=== PATIENT | male | born 1950 | race Caucasian/White ===

== ENCOUNTER 2024-10-03 05:54 | Inpatient (IN) | payer OTHER ==
--- OUTSIDE RECORDS SUMMARY | 2024-10-03 05:57 | XMS REPORT | Continuity of Care Document ---
Author Name Unknown Address [address] [place] [address] [place] [address] [facility] Address [address] [place] [address] [address] [place] [address] Care Team Providers Care Social Media Project Manager Name Role Phone No, PCP Attending Clinician Unavailable Encounters Start Date/Time End Date/Time Encounter Type Admission Type Attending Clinicians Care Facility Care Department Encounter ID Source 2024-09-30 14:04:01 Outpatient No, PCP JAZMIN [id number] [id number] [facility] 2024-09-12 14:16:01 Outpatient No, PCP JAZMIN [id number] [facility] 2024-09-10 08:15:01 Outpatient No, PCP CLS [id number] [facility]
[2024-10-03] MEDS ORDERED: VANCOMYCIN 1 GM/VIAL ONE (06:42)
[2024-10-03] MEDS ORDERED: PANTOPRAZOLE 40 MG INJ ONE (06:43)
[2024-10-03] MEDS ORDERED: IBUPROFEN 400 MG TAB ONE (06:43)
[2024-10-03] MEDS ORDERED: ACETAMINOPHEN 500 MG TAB ONE (06:43)
[2024-10-03] MEDS ORDERED: GUAIFENESIN/DM 5 ML UCUP ONE (06:44)
[2024-10-03] MEDS ORDERED: NA CHLORIDE 0.9% 1,000 ML ONE (06:44)
[2024-10-03] MEDS ORDERED: CEFEPIME 2 GM VIAL ONE (06:44)
[2024-10-03] MEDS ORDERED: NA CHLORIDE 0.9% 500 ML ONE (06:44)
[2024-10-03] MEDS ORDERED: NA CHLORIDE 0.9% 100 ML ONE (06:45)
[2024-10-03 06:52] LABS: Absolute Lymphocytes (CBC) 0.3 K/uL (0.7-4.9); Absolute Monocytes 0.6 K/uL (0.1-1.3); Absolute Neutrophil 16.1 K/uL (1.8-8.0); Basophils % 0.2 % (0-1.3); Eosinophils % 0.2 % (0-4.4); Hematocrit 43.2 % (39.6-49.0); Hemoglobin 15.4 g/dL (13.6-17.9); Lymphocytes % 1.9 % (15.3-44.8); MCHC 35.6 g/dL (32.0-36.0); MCV 98.4 fL (80-100); MPV 7.4 fL (7.6-11.3); Monocytes % 3.7 % (3.3-12.3); Platelets 262 thou/uL (152-406); RBC Red Blood Cell Count 4.39 M/uL (4.33-5.43); Red Cell Distribution Width 13.1 % (12.1-15.2)
[2024-10-03 06:59] LABS: PT Prothrombin Time 13.2 SECONDS (10.0-13.0); Protime INR 1.17
[2024-10-03 07:07] LABS: Albumin 3.7 g/dL (3.4-5.0); Albumin/Globulin Ratio 0.9 (1.1-1.8); Anion Gap 10.9 mEq/L (5.0-15.0); Bilirubin Total 1.4 mg/dL (0.2-1.0); Globulin 4.2 g/dL (2.3-3.5); Potassium 3.9 mEq/L (3.5-5.1); Protein, Total 7.9 g/dL (6.4-8.2)
[2024-10-03 07:14] LABS: Influenza A Ag Negative; Influenza B Ag Negative; SARS-CoV-2 Antigen Rapid Res Negative (Negative)
[2024-10-03 07:34] LABS: Troponin High Sensitivity 5.9 pg/mL (<58.9)
--- NOTE | 2024-10-03 08:30 | RAD REPORT ---
EXAMINATION: ONE VIEW CHEST XR CLINICAL INDICATION: Male, 73 years old.,Chest pain;COPD;Cough TECHNIQUE: Frontal chest projection is submitted. Examination is limited by patient positioning and t echnique. COMPARISON: None FINDINGS: Background chronic interstitial changes. Streaky left more than right basilar airspace opacities. No pneumothorax or sizable effusion. The heart is normal in size. Mediastinal contours are unremarkable. IMPRESSION: Streaky bibasilar airspace opacities, could reflect ongoing infection or mild interstitial edema.
--- NOTE | 2024-10-03 08:42 | RAD REPORT ---
EXAM: CT CHEST, ABDOMEN AND PELVIS WITHOUT CONTRAST CLINICAL INDICATION: Male, 73 years old. [facility] MAIN cough , vomiting Bed Name: 2 TECHNIQUE: CT chest, abdomen and pelvis was performed, without IV contrast, as per department protoco l. Axial, sagittal and coronal reconstructions were obtained. One or more of the following dose reduction techniques were used: Automated exposure control, adjustment of the mA and/or kV according to the patient size, and/or iterative reconstruction. Unless otherwise specified, incidental findings do not require dedicated imaging follow-up. COMPARISON: No prior exam. FINDINGS: The lack of intravenous contrast limits the sensitivity of this exam for evaluation of solid visceral organs, vascular structures, and retroperitoneum. Chest: LOWER NECK/CHEST WALL: Visualized thyroid gland and soft tissues are normal. LUNGS AND AIRWAYS: Patchy central and dependent predominant airspace opacities with interlobular sept al thickening. Subsolid peripheral right lower lobe nodule measuring 8mm. Background mild centrilobular emphysematous changes. PLEURA: No pleural effusion. No pneumothorax. Hemidiaphragms are normally positioned. MEDIASTINUM AND LYMPH NODES: No mediastinal mass or fluid collection. Normal size mediastinal, hilar, and axillary lymph nodes. THORACIC AORTA: Normal caliber and configuration. PULMONARY ARTERIES: Normal caliber. HEART: Unremarkable. Abdomen/Pelvis: Motion artifact at the level of the mid abdomen despite attempts at repeat imaging. LIVER: Normal in size and contour. No focal lesion. GALLBLADDER/BILE DUCTS: No biliary ductal dilatation. PANCREAS: No mass, ductal dilation, or elie-pancreatic fluid. SPLEEN: Normal size. No focal lesion. ADRENALS: Normal; no mass. KIDNEYS AND URETERS: Normal size and contour. No hydronephrosis. GASTROINTESTINAL TRACT: Stomach is non-dilated. Small bowel has normal course and caliber. No colonic wall thickening or pericolonic inflammatory changes. PERITONEUM: No free fluid. LYMPH NODES: No lymphadenopathy. ABDOMINAL AORTA AND OTHER VESSELS: Normal caliber aorta and IVC. URINARY BLADDER: Normal contour. REPRODUCTIVE ORGANS: No pathologic process. MUSCULOSKELETAL: Mild compression deformities along the superior endplate at the L1 and inferior endp late at L2. ADDITIONAL FINDINGS: None IMPRESSION: Patchy central and dependent bilateral airspace opacities with interlobular septal thickening. Findin gs could reflect multifocal pneumonitis versus pulmonary edema. Subcentimeter peripheral right lower lobe 8 mm nodule, follow-up CT recommended in 1-3 months or following resolution of any acute p rocess. Mild compression deformities at L1 and L2, of indeterminate age, correlate for focal symptoms at thos e levels.
--- NOTE | 2024-10-03 08:51 | EDPHYS ---
Physician Documentation [facility] Name: Julio Reyna Age: 73 yrs Sex: Male : 1950 Arrival Date: 10/03/2024 Time: 05:54 Bed 5 Private MD: ED Physician Willy Medina HPI: 10/03 08:15 This 73 yrs old Male presents to ER via Ambulatory with complaints of sp4 Shortness Of Breath, Nausea/Vomiting, Chest Pain, PT STATED HE IS VOMITING UP BLOOD. 08:15 Patient with past medical history of COPD presents with acute onset of fever nausea sp4 vomiting states also there is vomitus that is bloody. Historical: - Allergies: 06:17 No Known Allergies; vc1 - Home Meds: 12:17 losartan 25 mg oral tablet 1 tab daily [Active]; desvenlafaxine 100 mg oral Tablet, bp Extended Release 24 hr 1 tab daily [Active]; BuSpar Oral 10 mg daily [Active]; trazodone 100 mg Oral tablet 1 tab every day at bedtime [Active]; quetiapine 200 mg oral tablet 1 tab every day at bedtime [Active]; - PMHx: 06:17 Chronic obstructive lung disease; vc1 - PSHx: 06:17 hip replacements; vc1 - Immunization history:: Adult Immunizations unknown. - Infectious Disease History:: Denies. - Family history:: not pertinent. - Social history:: Smoking status: Patient denies any tobacco usage or history of. ROS: 08:15 Constitutional: Positive fever, positive shortness of breath, positive cough, positive sp4 bloody emesis 08:15 All other systems are negative, Exam: 08:15 Constitutional: This is a well developed, well nourished patient who is awake, alert, sp4 and in no acute distress. Head/Face: Normocephalic, atraumatic. Eyes: Pupils equal round and reactive to light, extra-ocular motions intact. Lids and lashes normal. Conjunctiva and sclera are not injected. Cornea within normal limits. Periorbital areas with no swelling, redness, or edema. ENT: Nares patent. No nasal discharge, no septal abnormalities noted. Tympanic membranes are normal and external auditory canals are clear. Oropharynx with no redness, swelling, or masses, exudates, or evidence of obstruction, uvula midline. Mucous membranes moist. Neck: Trachea midline, no thyromegaly or masses palpated, and no cervical lymphadenopathy. Supple, full range of motion without nuchal rigidity, or vertebral point tenderness. Chest/axilla: Normal chest wall appearance and motion. Nontender with no deformity. No lesions are appreciated. Cardiovascular: Regular rate and rhythm with a normal S1 and S2. No gallops, murmurs, or rubs. Normal PMI, no JVD. No pulse deficits. Respiratory: Lungs have equal breath sounds bilaterally, clear to auscultation and percussion. No rales, rhonchi or wheezes noted. No increased work of breathing, no retractions or nasal flaring. Abdomen/GI: Soft, with normal bowel sounds. No distension or tympany. No guarding or rebound. No evidence of tenderness throughout. Back: No spinal tenderness. No costovertebral tenderness. Skin: Warm, dry with normal turgor. Normal color with no rashes, no lesions, and no evidence of cellulitis. MS/ Extremity: Pulses equal, no cyanosis. Neurovascular intact. Full, normal range of motion. Neuro: Awake and alert, GCS 15, oriented to person, place, time, and situation. Cranial nerves II-XII grossly intact. Motor strength 5/5 in all extremities. Sensory grossly intact. Psych: Awake, alert, with orientation to person, place and time. Behavior, mood, and affect are within normal limits 08:15 ECG was reviewed by the Attending Physician. EKG at 0 611 sinus tachycardia right bundle branch block otherwise normal Vital Signs: 06:14 BP 134 / 79; Pulse 124; Resp 30; Temp 99.6; Pulse Ox 88% on R/A; Weight 89.81 kg; vc1 Height 5 ft. 10 in. ; Pain 8/10; 06:22 BP 125 / 76; Pulse 118; Resp 28; Temp 99.6; Pulse Ox 93% on 6 lpm NC; Pain 10/10; bm8 07:45 BP 101 / 62; Pulse 114; Resp 29; Pulse Ox 92% ; bp 08:27 BP 104 / 53; Pulse 112; Resp 24; Pulse Ox 93% on 6 lpm NC; ph 06:14 Body Mass Index 28.41 (89.81 kg, 177.8 cm) vc1 06:14 Pain Scale: Adult vc1 06:22 Pain Scale: Adult bm8 Ibrahima Coma Score: 06:22 Eye Response: spontaneous(4). Motor Response: obeys commands(6). Verbal Response: bm8 oriented(5). Total: 15. 08:15 Eye Response: spontaneous(4). Motor Response: obeys commands(6). Verbal Response: sp4 oriented(5). Total: 15. MDM: 06:36 Medical Screening Exam initiated sp4 08:18 Differential diagnosis: Anxiety Reaction asthma, Bronchitis CHF exacerbation, Chronic sp4 Obstructive Pulmonary Disease Myocardial Infarction pneumonia, Sepsis Unstable Angina. Data reviewed: vital signs, nurses notes, old medical records, lab test result(s), radiologic studies, CT scan. Transition of care: After a detail discussion of the patient's case, care is transferred to Willy Medina MD. 08:50 ED course: Patient signed out to me by night physician for CT chest abdomen and pelvis sp3 pending with probable pneumonia sepsis scenario. Pneumonia confirmed on CT. Antibiotics on board. Patient will be admitted to internal medicine.. 10/03 06:21 Order name: Blood Culture Adult (2) 10/03 06:21 Order name: CBC with Diff; Complete Time: 08:15 10/03 06:21 Order name: CMP; Complete Time: 08:15 10/03 06:21 Order name: Lactate w/ 2H reflex if indic.; Complete Time: 08:15 10/03 06:21 Order name: Protime (+inr); Complete Time: 08:15 10/03 06:21 Order name: Ptt, Activated; Complete Time: 08:15 10/03 06:23 Order name: COVID-19 Ag + Flu A+B Ag; Complete Time: 08:15 10/03 06:26 Order name: Group A Streptococcus Rapid; Complete Time: 08:15 10/03 06:34 Order name: Troponin High Sensitivity; Complete Time: 08:15 10/03 06:34 Order name: BNP; Complete Time: 08:15 sp10/03 06:35 Order name: CRP; Complete Time: 08:15 sp10/03 06:36 Order name: Lipase; Complete Time: 08:15 10/03 06:36 Order name: Urinalysis W/Microscopic 4 10/03 07:14 Order name: Throat Culture EDAZ 10/03 09:42 Order name: Urinalysis w/ reflexes EDMS 10/03 09:42 Order name: Basic Metabolic Panel EDAZ 10/03 09:42 Order name: Basic Metabolic Panel EDAZ 10/03 09:42 Order name: Basic Metabolic Panel EDAZ 10/03 09:42 Order name: Basic Metabolic Panel [facility] 10/03 09:42 Order name: Comprehensive Metabolic Panel [facility] 10/03 09:42 Order name: Comprehensive Metabolic Panel [facility] 10/03 09:42 Order name: Comprehensive Metabolic Panel EDAZ 10/03 09:42 Order name: Comprehensive Metabolic Panel [facility] 10/03 09:42 Order name: Liver (Hepatic) Function EDAZ 10/03 09:42 Order name: Liver (Hepatic) Function EDAZ 10/03 09:42 Order name: Protime (+INR) EDAZ 10/03 09:42 Order name: Protime (+INR) EDAZ 10/03 09:42 Order name: Sputum Culture [facility] 10/03 06:27 Order name: CXR XRAY; Complete Time: 08:44 vc1 10/03 06:33 Order name: CT Chest Abdomen Pelvis W/O Contrast; Complete Time: 08:44 sp4 10/03 09:52 Order name: Abdomen Exam Limited; Complete Time: 13:08 EDAZ 10/03 09:42 Order name: EKG Electrocardiogram EDAZ 10/03 09:42 Order name: EKG Electrocardiogram [facility] 10/03 06:21 Order name: Cardiac monitoring; Complete Time: 06:32 vc1 10/03 06:21 Order name: EKG - Nurse/Tech; Complete Time: 06:32 vc1 10/03 06:21 Order name: IV Saline Lock - Large Bore; Complete Time: 06:32 vc1 10/03 06:21 Order name: Labs collected and sent; Complete Time: 06:32 vc1 10/03 06:21 Order name: O2 Per Protocol; Complete Time: 06:32 vc1 10/03 06:21 Order name: O2 Sat Monitoring; Complete Time: 06:32 vc1 10/03 06:21 Order name: Vital Signs; Complete Time: 06:32 vc1 EC:11 Rate is 125 beats/min. Rhythm is regular, Sinus tachycardia. QRS Vestal is Normal. OK sp4 interval is normal. QRS interval is prolonged. QT interval is normal. No Q waves. T waves are Normal. No ST changes noted. Clinical impression: No evidence of ischemia. Interpreted by me. Reviewed by me. Administered Medications: 07:04 Drug: Pantoprazole IVP 80 mg IVP once Route: IVP; Site: right forearm; bm8 08:25 Follow up: Response: No adverse reaction ph 07:04 Drug: Cefepime IVPB 2 grams IVPB at 200 ml/hr once over 30 mins; (mix in NS 100 mL) bm8 Route: IVPB; Rate: 200 ml/hr; Infused Over: 30 mins; Site: right forearm; 07:35 Follow up: IV Status: Completed infusion ph 07:04 Drug: NS 0.9% IV 1000 ml IV at 1 bolus Per protocol; to be given as a bolus over 60 bm8 minutes Route: IV; Rate: 1 bolus; Site: right forearm; 08:10 Follow up: Response: No adverse reaction; IV Status: Completed infusion ph 07:04 Drug: Acetaminophen PO 1000 mg PO once Route: PO; bm8 08:26 Follow up: Response: No adverse reaction ph 07:04 Drug: Dextromethorphan-Guaifenesin PO Liquid 10 mg-100 mg/5 mL 10 ml PO once Route: PO; bm8 08:26 Follow up: Response: No adverse reaction ph 07:05 Drug: Ibuprofen PO 800 mg PO once Route: PO; bm8 08:25 Follow up: Response: No adverse reaction ph 07:43 Drug: vancoMYCIN IVPB 2 grams IVPB at calculated rate once Route: IVPB; Rate: bp calculated rate; Site: right forearm; 07:44 Drug: NS 0.9% IV 1000 ml IV at 125 ml/hr Per protocol; to be given as a bolus over 60 bp minutes Route: IV; Rate: 125 ml/hr; Site: right forearm; 08:26 Follow up: Response: No adverse reaction; IV Status: Infusion continued upon admission ph 07:45 Drug: NS 0.9% IV 1000 ml IV at 1 bolus Per protocol; to be given as a bolus over 60 bp minutes Route: IV; Rate: 1 bolus; Site: right forearm; 08:26 Follow up: Response: No adverse reaction; IV Status: Completed infusion; IV Intake: ph 1000ml Disposition Summary: 10/03/24 08:51 Hospitalization Ordered Notes: Hospitalization Status: Inpatient Admission sp3 Provider: Omer Sanchez sp3 Condition: Stable sp3 Problem: an acute exacerbation sp3 Symptoms: have worsened sp3 Bed/Room Type: Standard sp3 Location: Telemetry/MedSurg (observation)(10/03/24 17:24) hb Room Assignment: 218(10/03/24 17:24) hb Diagnosis - pneumonia, sepsis sp3 Forms: - Medication Reconciliation Form sp3 - SBAR form sp3 - Leadership Thank You Letter sp3 Signatures: Dispatcher [employer] EDMS Soniya Auguste, RN RN Cristhian Walton, RN RN bp Willy Medina MD MD sp3 Missy Tellez RN RN vc1 Hector Pro MD MD sp4 Reji Maciel RN RN bm8 Trisha Long RN ph Corrections: (The following items were deleted from the chart) 06:21 06:21 BLOOD CULTURE*+BA.LAB.BRZ ordered. EDMS EDMS 06:21 06:21 CBC+H.LAB.BRZ ordered. EDMS EDMS 06:21 06:21 COMPREHENSIVE METABOLIC PANEL+C.LAB.BRZ ordered. EDMS EDMS 06:21 06:21 LACTATE+C.LAB.BRZ ordered. EDMS EDMS 06:21 06:21 PROTIME (+INR)+COAG.LAB.BRZ ordered. EDMS EDMS 06:22 06:21 PTT, ACTIVATED+COAG.LAB.BRZ ordered. EDMS EDMS 06:24 06:23 COVID-19 Ag + Flu A+B Ag+I.LAB.BRZ ordered. EDMS EDMS 06:27 06:27 Chest Single View+RAD.RAD.BRZ ordered. EDMS EDMS 06:31 06:21 Accucheck ordered. vc1 bm8 06:35 06:35 C-REACTIVE PROTEIN+C.LAB.BRZ ordered. EDMS EDMS 06:36 06:36 Urinalysis W/Microscopic+U.LAB.BRZ ordered. EDMS EDMS 07:10 06:33 Troponin High Sensitivity+C.LAB.BRZ ordered. EDMS EDMS 12:49 08:51 Telemetry/MedSurg (observation) sp3 bp 12:49 08:51 sp3 bp 17:24 12:49 [facility] ER HOLD bp hb : 12:49 ERHOLD- bp hb
--- NOTE | 2024-10-03 08:51 | ER ---
Nurse's Notes [facility] Name: Julio Reyna Age: 73 yrs Sex: Male : 1950 Arrival Date: 10/03/2024 Time: 05:54 Bed 5 Private MD: Diagnosis: pneumonia, sepsis Presentation: 10/03 06:14 Chief complaint: Patient states: Shortness of breath with cough, vomiting, and sore vc1 throat. Coronavirus screen: Client denies travel out of the [place] in the last 14 days. At this time, the client does not indicate any symptoms associated with coronavirus-19. Ebola Screen: Patient negative for fever greater than or equal to 101.5 degrees Fahrenheit, and additional compatible Ebola Virus Disease symptoms Patient denies exposure to infectious person. Patient denies travel to an Ebola-affected area in the 21 days before illness onset. No symptoms or risks identified at this time. Initial Sepsis Screen: Does the patient meet any 2 criteria? RR > 20 per min. HR > 90 bpm. Yes Does the patient have a suspected source of infection? No. Patient's initial sepsis screen is negative. Risk Assessment: Do you want to hurt yourself or someone else? Patient reports no desire to harm self or others. Onset of symptoms is unknown. Care prior to arrival: None. Activity prior to arrival: vomiting. Mechanism of Injury: No Mechanism of Injury. 06:14 Method Of Arrival: Ambulatory vc1 06:14 Acuity: KARSON 2 vc1 Triage Assessment: 06:18 General: Appears in no apparent distress. uncomfortable, ill, Behavior is cooperative, vc1 appropriate for age, Reports feeling ill for > 3 days. Pain: Complains of pain in chest and throat. EENT: No deficits noted. No signs and/or symptoms were reported regarding the EENT system. Neuro: Level of Consciousness is awake, alert, obeys commands, Oriented to person, place, time, situation, Appropriate for age. Cardiovascular: Capillary refill < 3 seconds Patient's skin is warm and dry. Rhythm is sinus tachycardia. Respiratory: the patient has moderate shortness of breath. Respiratory: Reports shortness of breath at rest cough that is productive, Airway is patent Respiratory effort is even, unlabored, Respiratory pattern is symmetrical, tachypnea Breath sounds are clear Onset: The symptoms/episode began/occurred 3-4 days ago. GI: Reports nausea, vomiting. : No deficits noted. No signs and/or symptoms were reported regarding the genitourinary system. Derm: Skin is intact, is healthy with good turgor. Derm: Skin temperature is hot. Musculoskeletal: Circulation, motion, and sensation intact. Range of motion: intact in all extremities. Historical: - Allergies: 06:17 No Known Allergies; vc1 - Home Meds: 12:17 losartan 25 mg oral tablet 1 tab daily [Active]; desvenlafaxine 100 mg oral Tablet, bp Extended Release 24 hr 1 tab daily [Active]; BuSpar Oral 10 mg daily [Active]; trazodone 100 mg Oral tablet 1 tab every day at bedtime [Active]; quetiapine 200 mg oral tablet 1 tab every day at bedtime [Active]; - PMHx: 06:17 Chronic obstructive lung disease; vc1 - PSHx: 06:17 hip replacements; vc1 - Immunization history:: Adult Immunizations unknown. - Infectious Disease History:: Denies. - Family history:: not pertinent. - Social history:: Smoking status: Patient denies any tobacco usage or history of. Screenin:18 [facility] ED Fall Risk Assessment (Adult) History of falling in the last 3 months, vc1 including since admission No falls in past 3 months (0 pts) Confusion or Disorientation No (0 pts) Intoxicated or Sedated No (0 pts) Impaired Gait No (0 pts) Mobility Assist Device Used No (0 pt) Altered Elimination No (0 pt) Score/Fall Risk Level 0 - 2 = Low Risk Oriented to surroundings, Maintained a safe environment, Educated pt \T\ family on fall prevention, incl call for assistance when getting out of bed. Abuse screen: Denies threats or abuse. Nutritional screening: No deficits noted. Tuberculosis screening: No symptoms or risk factors identified. Assessment: 06:22 General: Appears distressed, uncomfortable, Behavior is calm, cooperative, appropriate bm8 for age. Pain: Complains of pain in chest and throat Pain currently is 10 out of 10 on a pain scale. Quality of pain is described as burning, aching, sharp, Pain began 2-3 days ago. Neuro: No deficits noted. Level of Consciousness is awake, alert, obeys commands, Oriented to person, place, time, situation, Appropriate for age. Cardiovascular: Reports chest pain, Heart tones S1 S2 present Capillary refill < 3 seconds in bilateral fingers Patient's skin is warm and dry. Rhythm is sinus tachycardia. Respiratory: Airway is patent Trachea midline Respiratory effort is even, pursed lip, Respiratory pattern is regular, symmetrical, hyperventilation Breath sounds are clear bilaterally. the patient has moderate shortness of breath. GI: Abdomen is round non-distended, no evidence of coffee ground emesis noted in mouth Bowel sounds present X 4 quads. Abd is soft and non tender Reports vomiting, vomiting blood. : No signs and/or symptoms were reported regarding the genitourinary system. EENT: Throat is reddened bilaterally with gag reflex present, Reports sore throat for 2-3 days. Derm: No signs and/or symptoms reported regarding the dermatologic system. Musculoskeletal: No signs and/or symptoms reported regarding the musculoskeletal system. 07:46 Reassessment: No changes from previously documented assessment. Patient is alert, bp oriented x 3, equal unlabored respirations, skin warm/dry/pink. Vital Signs: 06:14 BP 134 / 79; Pulse 124; Resp 30; Temp 99.6; Pulse Ox 88% on R/A; Weight 89.81 kg; vc1 Height 5 ft. 10 in. ; Pain 8/10; 06:22 BP 125 / 76; Pulse 118; Resp 28; Temp 99.6; Pulse Ox 93% on 6 lpm NC; Pain 10/10; bm8 07:45 BP 101 / 62; Pulse 114; Resp 29; Pulse Ox 92% ; bp 08:27 BP 104 / 53; Pulse 112; Resp 24; Pulse Ox 93% on 6 lpm NC; ph 06:14 Body Mass Index 28.41 (89.81 kg, 177.8 cm) vc1 06:14 Pain Scale: Adult vc1 06:22 Pain Scale: Adult bm8 Robinson Coma Score: 06:22 Eye Response: spontaneous(4). Motor Response: obeys commands(6). Verbal Response: bm8 oriented(5). Total: 15. 08:15 Eye Response: spontaneous(4). Motor Response: obeys commands(6). Verbal Response: sp4 oriented(5). Total: 15. ED Course: 05:56 Patient arrived in ED. jj6 06:05 Reji Maciel, RN is Primary Nurse. bm8 06:11 Hector Pro MD is Attending Physician. al5 06:14 Patient has correct armband on for positive identification. Bed in low position. Call vc1 light in reach. telephone order clerk on. Pulse ox on. NIBP on. 06:14 Provided Education on: call light. vc1 06:16 Triage completed. vc1 06:17 Oxygen administration via nasal cannula \T\ 2L/min. vc1 06:18 Arm band placed on left wrist. vc1 06:40 CXR XRAY In Process Unspecified. EDMS 07:00 Inserted saline lock: 20 gauge in right forearm, using aseptic technique. Blood bp collected. Flushed with 10 mL NS. 07:06 CT Chest Abdomen Pelvis W/O Contrast In Process Unspecified. EDMS 08:26 Attending Physician role handed off by Hector Pro MD sp3 08:26 Willy Medina MD is Attending Physician. sp3 08:50 Omer Sanchez MD is Hospitalizing Provider. sp3 12:49 No provider procedures requiring assistance completed. Patient admitted, IV remains in bp place. Administered Medications: 07:04 Drug: Pantoprazole IVP 80 mg IVP once Route: IVP; Site: right forearm; bm8 08:25 Follow up: Response: No adverse reaction ph 07:04 Drug: Cefepime IVPB 2 grams IVPB at 200 ml/hr once over 30 mins; (mix in NS 100 mL) bm8 Route: IVPB; Rate: 200 ml/hr; Infused Over: 30 mins; Site: right forearm; 07:35 Follow up: IV Status: Completed infusion ph 07:04 Drug: NS 0.9% IV 1000 ml IV at 1 bolus Per protocol; to be given as a bolus over 60 bm8 minutes Route: IV; Rate: 1 bolus; Site: right forearm; 08:10 Follow up: Response: No adverse reaction; IV Status: Completed infusion ph 07:04 Drug: Acetaminophen PO 1000 mg PO once Route: PO; bm8 08:26 Follow up: Response: No adverse reaction ph 07:04 Drug: Dextromethorphan-Guaifenesin PO Liquid 10 mg-100 mg/5 mL 10 ml PO once Route: PO; bm8 08:26 Follow up: Response: No adverse reaction ph 07:05 Drug: Ibuprofen PO 800 mg PO once Route: PO; bm8 08:25 Follow up: Response: No adverse reaction ph 07:43 Drug: vancoMYCIN IVPB 2 grams IVPB at calculated rate once Route: IVPB; Rate: bp calculated rate; Site: right forearm; 07:44 Drug: NS 0.9% IV 1000 ml IV at 125 ml/hr Per protocol; to be given as a bolus over 60 bp minutes Route: IV; Rate: 125 ml/hr; Site: right forearm; 08:26 Follow up: Response: No adverse reaction; IV Status: Infusion continued upon admission ph 07:45 Drug: NS 0.9% IV 1000 ml IV at 1 bolus Per protocol; to be given as a bolus over 60 bp minutes Route: IV; Rate: 1 bolus; Site: right forearm; 08:26 Follow up: Response: No adverse reaction; IV Status: Completed infusion; IV Intake: ph 1000ml Medication: 06:54 VIS not applicable for this client. vc1 Intake: 08:26 IV: 1000ml; Total: 1000ml. ph Outcome: 08:51 Decision to Hospitalize by Provider. sp3 09:00 Admitted to ER Hold. Please see [facility] for further documentation. ph 09:00 Condition: stable 09:00 Instructed on the need for admit, 17:37 Patient left the ED. ld1 Signatures: Dispatcher [employer] Trisha Graham RN RN ph Cristhian Walton, RN Kavita Mendiola RN RN ld1 Willy Medina MD MD sp3 Jenny Patterson6 Missy Tellez RN RN vc1 Hector Pro MD MD sp4 Reji Maciel RN RN bm8 Sera Montilla RN RN al5
[2024-10-03] MEDS: levoFLOXacin 250 MG TAB PO SCH (09:00)
--- NOTE | 2024-10-03 10:00 | P.HP ---
Certification for Inpatient With expected LOS: <2 Midnights Patient will require the following post-hospital care: None Practitioner: I am a practitioner with admitting privileges, knowledge of patient current condition, hospital course, and medical plan of care. Services: Services provided to patient in accordance with Admission requirements found in Title 42 Section 412.3 of the Code of Federal Regulations Patient History Date of Service: 10/03/24 Reason for admission: Shortness of breath with hemoptysis History of Present Illness: Is a 73-year-old male with past medical history of COPD (without home oxygen use), anxiety, and depression, presents to the ED with shortness of breath and coughing of blood x 5 days. Patient states that he has had pneumonia several times in the past with the same symptoms. No over the counter medications were used for symptom management. Patient also reports nausea and vomiting episodes. ED workup showed chest x-ray with streaky left more than right basilar airspace opacities, CT of Chest/Abd/pelvis with subsolid peripheral right lower lobe nodule measuring 8 mm, WBC 17.1, lactic 1.4, CRP 105, T. bili 1.4, creatinine 1.20, BUN 20, PT 13.2, lipase 20. Patient received 2 L fluid bolus and was started on vancomycin and cefepime while in ED. Patient now being admitted for pneumonia/sepsis at this time. Allergies No Known Allergies Allergy (Unverified 10/03/24 10:06) Home medications list reviewed: Yes - Past Medical/Surgical History Diabetic: No Past Medical History: Reviewed- Non-Contributory (COPD) Past Surgical History: Reviewed- Non-Contributory (Unknown abdominal surgery back in 1997) - Social History Smoking Status: Former smoker Alcohol use: No CD- Drugs: No Caffeine use: Yes Place of Residence: Home Review of Systems 10-point ROS is otherwise unremarkable Respiratory: Cough, Shortness of Breath, Hemoptysis, SOB with Excertion, Sputum Cardiovascular: Orthopnea Gastrointestinal: Nausea, Vomiting, Distention Genitourinary: Unremarkable Musculoskeletal: Back Pain Integumentary: Unremarkable Neurological: Unremarkable Lymphatics: Unremarkable Physical Examination - Physical Exam General: Alert, In no apparent distress HEENT: Atraumatic, PERRLA, Mucous membr. moist/pink, EOMI, Sclerae nonicteric Neck: Supple Respiratory: Diminished, Expiratory wheezes, Other (currently on 2L/NC ) Capillary refill: <2 Seconds Gastrointestinal: Normal bowel sounds, Other (Old surgical scar ), Distended Musculoskeletal: No tenderness Integumentary: No rashes Neurological: Normal gait, Normal speech, Normal strength at 5/5 x4 extr, Normal tone, Normal affect External genitalia: Deferred Rectal: Deferred - Studies Laboratory Data (last 24 hrs) 10/03/24 10/03/24 10/03/24 07:05 06:15 06:15 WBC Hgb Hct Plt Count PT 13.2 H INR 1.17 APTT 29.0 Sodium 137 Potassium 3.9 BUN 20 H Creatinine 1.20 Glucose 109 H Total Bilirubin 1.4 H AST 12 L ALT 20 Alkaline Phosphatase 61 Lipase 20 10/03/24 06:15 WBC 17.10 H Hgb 15.4 Hct 43.2 Plt Count 262 PT INR APTT Sodium Potassium BUN Creatinine Glucose Total Bilirubin AST ALT Alkaline Phosphatase Lipase Assessment and Plan - Problems (Diagnosis) (1) Pneumonia Current Visit: Yes Status: Acute Plan: 1. COPD exacerbation Pneumonia Sepsis - Sepsis secondary to PNA - Afebrile,WBC 17.2, lactic 1.4, 02 sat 88% on arrival - RESPAN; negative - Blood cultures pending, need follow up - Urinalysis, sputum culture ordered, follow up needed - Received NS 2L fluid bolus while in ED - CXR with bibasilar opacities - Breathing Tx's Q6h and IV steroids - Reports frequent hospitalizations for PNA in the past - CT of chest with subsolid peripheral right lower lobe 8mm nodule - Pulmonology consulted with recs for: change to p.o. levofloxacin DC Cefepime most likely atypical infection. Check ANCA, antiglomerular basement antibody ,monitor hemoglobin possibility of pulmonary hemorrhage, 2D echocardiogram, IV Lasix, UDS. - Cefepime/Vancomycin initiated in ED, discontinued per Pulmonolgy recs and PO Levofloxacin started - Supplemental oxygen and wean for goal O2 sat greater than 90% 2. Nausea/Vomiting Abdominal Distention - PT 13.2, CRP 105, BNP 177, Lipase 20, T-bili 1.4 - CT of abd w/o contrast; motion artifact at the level of the mid abdomen despite attempts at repeat imaging - RUQ US ordered and reviewed with diffuse hepatic steatosis - Monitor electrolytes - Monitor LFT's 3. Hx of Anxiety/Depression/Insomnia - Continue home meds once verified DVT Ppx: SCD's for now GI Ppx: IV Protonix Code Status: Full Code Qualifiers: Pneumonia type: due to unspecified organism Laterality: bilateral Lung location: unspecified part of lung Qualified Code(s): J18.9 - Pneumonia, unspecified organism Discharge Plan: Home Plan to discharge in: 24 Hours - Advance Directives Does patient have a Living Will: No Does patient have a Durable POA for Healthcare: No - Code Status/Comfort Care Code Status Assessed: Yes Critical Care: No
[2024-10-03] MEDS ORDERED: SODIUM CHLORIDE 0.9% 10ML INJ IV PRN (10:41)
[2024-10-03] MEDS ORDERED: VANCOMYCIN 1 GM in NA CHLORIDE 0.9% 250 ML IVPB SCH (11:00)
[2024-10-03] MEDS ORDERED: ALBUTEROL 2.5 MG/3 ML NEB SOL ONE (12:12)
[2024-10-03] MEDS ORDERED: IPRATROPIUM BROM 0.5MG/2.5ML ONE (12:12)
[2024-10-03] MEDS: FUROSEMIDE 20 MG/ 2ML VIAL IV SCH (12:22)
--- NOTE | 2024-10-03 12:25 | P.CNS ---
Date of Consult: 10/03/24 Reason for Consult: Hemoptysis Chief Complaint: Shortness of breath with hemoptysis History of Present Illness: Patient is 73 years of age with a history of COPD admitted with a 4-day history of hemoptysis denies any fever or chills also complaining of sore throat he quit smoking over 30 years ago denies any chest pain no prior history of cardiopulmonary disorder no history of peptic ulcer disease or varices patient does not drink Allergies No Known Allergies Allergy (Unverified 10/03/24 10:06) - Past Medical/Surgical History Diabetic: No -: COPD -: Depression with anxiety -: Bilateral hip surgery - Social History Alcohol use: No CD- Drugs: No Caffeine use: Yes Place of Residence: Home Review of Systems 10-point ROS is otherwise unremarkable Physical Examination General: Alert, In no apparent distress, Oriented x3 HEENT: Atraumatic Neck: Supple Respiratory: Clear to auscultation bilaterally, Crackles/rales (Crackles at the bases) Cardiovascular: No edema, Regular rate/rhythm, Normal S1 S2 Gastrointestinal: Normal bowel sounds, Soft and benign, Non-distended Musculoskeletal: No clubbing, No swelling Laboratory Data (last 24 hrs) 10/03/24 10/03/24 10/03/24 07:05 06:15 06:15 WBC Hgb Hct Plt Count PT 13.2 H INR 1.17 APTT 29.0 Sodium 137 Potassium 3.9 BUN 20 H Creatinine 1.20 Glucose 109 H Total Bilirubin 1.4 H AST 12 L ALT 20 Alkaline Phosphatase 61 Lipase 20 10/03/24 06:15 WBC 17.10 H Hgb 15.4 Hct 43.2 Plt Count 262 PT INR APTT Sodium Potassium BUN Creatinine Glucose Total Bilirubin AST ALT Alkaline Phosphatase Lipase - Problems (1) Hemoptysis Current Visit: Yes Status: Acute Plan: Patient is 73 years of age admitted with a 4-day history of hemoptysis, bilateral interstitial changes history of COPD does not smoke quit smoking over 30 years ago no history of alcohol abuse peptic ulcer disease or varices patient's white count is elevated changed to p.o. levofloxacin DC cefepime most likely atypical infection check ANCA antiglomerular basement antibody monitor hemoglobin possibility of pulmonary hemorrhage 2D echocardiogram IV Lasix urinary t urine drug screen
[2024-10-03] MEDS ORDERED: predniSONE 20 MG TAB PO SCH (12:29)
[2024-10-03] MEDS: METHYLPREDNISOLONE 125 MG INJ IV SCH (12:29)
[2024-10-03] MEDS ORDERED: ALBUTEROL 2.5 MG/3 ML NEB SOL NEB PRN (12:31)
[2024-10-03] MEDS ORDERED: ALBUTEROL 2.5 MG/3 ML NEB SOL NEB SCH (13:00)
[2024-10-03] MEDS ORDERED: IPRATROPIUM BROM 0.5MG/2.5ML NEB SCH (13:00)
--- NOTE | 2024-10-03 13:04 | RAD REPORT ---
EXAMINATION: US Abdomen Exam Limited CLINICAL HISTORY: [facility] MAIN Sepsis adb discomfort COMPARISON: None. TECHNIQUE: Limited upper abdominal grayscale and color flow sonographic images. FINDINGS: Gallbladder: Normal. Bile ducts: No intrahepatic or extrahepatic biliary dilatation. Common bile duct measures 3 mm. Liver: Visualized portions of the liver demonstrate diffuse parenchymal echogenicity suggesting steat osis. Fluid: No ascites. IMPRESSION: No abnormalities on gallbladder or biliary tree noted. Diffuse hepatic steatosis.
[2024-10-03 15:44] VITALS: BMI 28.4
[2024-10-03] MEDS ORDERED: METHYLPREDNISOLONE 125 MG INJ ONE (16:11)
[2024-10-03] MEDS ORDERED: FUROSEMIDE 20 MG/ 2ML VIAL ONE (16:11)
[2024-10-03] MEDS ORDERED: levoFLOXacin 750 MG TAB ONE (16:11)
--- NOTE | 2024-10-03 16:43 | EKG ---
Test Date: 2024-10-03 Test Time: 06:11:24 R And D Lab Technician: LEAH MEASUREMENT RESULTS: Intervals: Rate: 125 AK: 138 QRSD: 108 QT: 314 QTc: 453 [place]: P: 64 AK: 138 QRS: -62 T: 106 INTERPRETIVE STATEMENTS: Sinus tachycardia Possible Left atrial enlargement Right bundle branch block Left anterior fascicular block Bifascicular block Left ventricular hypertrophy with repolarization abnormality Cannot rule out Septal infarct, age undetermined Abnormal ECG No previous ECG available for comparison Electronically Signed On 10-03-24 16:42:39 NUT STEAMER by Mehrdad Mercado
[2024-10-03] MEDS: TRAZODONE 50 MG TABLET PO SCH (19:54)
[2024-10-03] MEDS: QUETIAPINE 100MG TAB PO SCH (19:55)
[2024-10-03] MEDS: DULERA 200/5 (MOMETASONE/FORMOTEROL) INHALER IH SCH (19:57)
[2024-10-03] MEDS ORDERED: CEFEPIME 2 GM in NA CHLORIDE 0.9% 100 ML IV SCH (21:00)
[2024-10-03] MEDS ORDERED: HOME MED 1 EA UNK (Trazodone Hcl [Trazodone Hcl] 100 MG Tablet) PO SCH (21:00)
[2024-10-04] MEDS: GUAIFENESIN 600 MG SA TAB PO SCH (00:01)
[2024-10-04] MEDS: BENZONATATE 100 MG CAP PO PRN (00:01)
[2024-10-04 04:57] LABS: PT Prothrombin Time 15.7 SECONDS (10.0-13.0); Protime INR 1.4
[2024-10-04 05:07] LABS: ALT/SGPT 17 U/L (16-61); Albumin 3.3 g/dL (3.4-5.0); Albumin/Globulin Ratio 0.8 (1.1-1.8); Alkaline Phosphatase 50 U/L (45-117); Anion Gap 9.6 mEq/L (5.0-15.0); BUN Blood Urea Nitrogen 25 mg/dL (7-18); Bicarbonate 26 mEq/L (21-32); Bilirubin Direct 0.3 mg/dL (0-0.2); Bilirubin Indirect, Calculated 0.5 mg/dL (0.2-0.8); Bilirubin Total 0.8 mg/dL (0.2-1.0); Glomerular Filtration Rate 62 ml/min (=/>90); Glucose Level 146 mg/dL (74-106); Potassium 3.6 mEq/L (3.5-5.1); Protein, Total 7.3 g/dL (6.4-8.2); Sodium Level 139 mEq/L (136-145)
[2024-10-04 05:24] LABS: AST/SGOT < 10 U/L (15-37)
[2024-10-04] MEDS ORDERED: VANCOMYCIN 1.75 GM in NA CHLORIDE 0.9% 500 ML IVPB SCH (06:00)
--- NOTE | 2024-10-04 06:53 | ECHO ---
HEIGHT: 5 ft 10 in WEIGHT: 198 lb 0 oz DATE OF STUDY: 10/03/[address]: Jonathan Frey MD 2-DIMENSIONAL: YES M.MODE: YES DOPPLER: YES COLOR FLOW: YES TDS: PORTABLE: YES DEFINITY: BUBBLE STUDY: DIAGNOSIS: HEMOPTYSIS CARDIAC HISTORY: CATHERIZATION: NO SURGERY: NO PROSTHETIC VALVE: NO PACEMAKER: NO MEASUREMENTS (cm) DIASTOLIC (NORMALS) SYSTOLIC (NORMALS) IVSd 1.1 (0.6-1.2) LA Diam 3.8 (1.9-4.0) LVEF 60-65% LVIDd 3.8 (3.5-5.7) LVIDs 2.7 (2.0-3.5) %FS 30% LVPWd 1.1 (0.6-1.2) Ao Diam 2.9 (2.0-3.7) 2 DIMENSIONAL ASSESSMENT: RIGHT ATRIUM: NORMAL LEFT ATRIUM: NORMAL RIGHT VENTRICLE: NORMAL LEFT VENTRICLE: NORMAL TRICUSPID VALVE: MILD TRICUSPID REGURGITATION MITRAL VALVE: CALCIFIED, TRACE MITRAL REGURGITATION PULMONIC VALVE: NORMAL AORTIC VALVE: CALCIFIED, MODERATE AORTIC STENOSIS PERICARDIAL EFFUSION: NONE AORTIC ROOT: NORMAL LEFT VENTRICULAR WALL MOTION: NORMAL DOPPLER/COLOR FLOW: NORMAL COMMENTS: 1. NORMAL LEFT VENTRICULAR SYSTOLIC FUNCTION, EJECTION FRACTION 60-65%, NORMAL WALL MOTION 2. CALCIFIED AORTIC VALVE WITH MODERATE AORTIC STENOSIS (AORTIC VALVE AREA 1.2 CENTIMETERS SQUARED, MEAN GRADIENT 24 mmHg) TECHNOLOGIST: YOLANDA BELTRAN
[2024-10-04 07:55] LABS: Absolute Lymphocytes (CBC) 0.2 K/uL (0.7-4.9); Absolute Monocytes 0.1 K/uL (0.1-1.3); Absolute Neutrophil 9.6 K/uL (1.8-8.0); Basophils % 0.1 % (0-1.3); Hematocrit 39.8 % (39.6-49.0); Hemoglobin 13.9 g/dL (13.6-17.9); Lymphocytes % 2.2 % (15.3-44.8); MCHC 34.9 g/dL (32.0-36.0); MCV 100.2 fL (80-100); MPV 7.8 fL (7.6-11.3); Monocytes % 0.7 % (3.3-12.3); Platelets 246 thou/uL (152-406); RBC Red Blood Cell Count 3.97 M/uL (4.33-5.43); Red Cell Distribution Width 13.2 % (12.1-15.2)
[2024-10-04] MEDS ORDERED: HOME MED 1 EA UNK (Losartan Potassium [Cozaar] 25 MG Tablet) PO SCH (09:00)
[2024-10-04] MEDS ORDERED: DESVENLAFAXINE 100 MG PO SCH (09:00)
[2024-10-04 09:11] LABS: Blood Morphology Comment NOT SEEN (NOT SEEN); Platelet Estimate ADEQ; White Blood Cell Scan OK (OK)
[2024-10-04] MEDS: LOSARTAN POTASSIUM 50 MG TABLET PO SCH (09:28)
[2024-10-04] MEDS: BUSPIRONE HCL 5 MG TABLET PO SCH (09:28)
[2024-10-04] MEDS: POTASSIUM CL SA 10 MEQ TAB PO ONE (09:28)
[2024-10-04] MEDS: PANTOPRAZOLE 40 MG INJ IVP SCH (09:29)
[2024-10-04] MEDS: DESVENLAFAXINE SUCCINATE 50 MG ER TAB PO SCH (09:29)
--- NOTE | 2024-10-04 12:16 | P.PN ---
Date of Service: 10/04/24 Subjective: feels slightly better continues with coughing episodes, had post-tussive emesis last night no further blood in sputum still with some dyspnea ROS: 10 point ROS as noted above, otherwise negative Physical Exam: GEN: Alert, oriented, NAD CV: Regular rate and rhythm, no edema Pulm: Nonlabored respirations on room air, wheeze bilaterally ABD: soft, nontender, nondistended Neuro: Normal speech, normal affect Problem List: acute hypoxic respiratory failure secondary to pneumonia Hemoptysis Chronic COPD 8mm RLL nodule; incidental finding Anxiety/Depression acute hypoxic respiratory failure secondary to pneumonia Hemoptysis Chronic COPD on admission, presents with worsening shortness of breath, cough, sore throat, Hemoptysis x5 days. Reports multiple episodes of pneumonia in the past with similar symptoms. CXR (10/03): streaky bibasilar airspace opacities, concerning for ongoing infection vs mild edema. CT chest (10/03): Patchy central and dependent bilateral airspace opacities with interlobular septal thickening. Findings could reflect multifocal pneumonitis versus pulmonary edema. Flu/Covid negative. Dr. Frey, pulm was consulted. increased IV steroids, added IV lasix IV antibiotics deescalated to oral levaquin (10/03-) PRN antitussives on room air this morning at rest 8mm RLL nodule; incidental finding CT chest incidentally noted a Subcentimeter peripheral right lower lobe 8 mm nodule. Advised patient to follow up with PCP for further discussion, and to consider repeat CT in 1-3 months to re-assess nodule. Anxiety/Depression confirm home meds, restart as appropriate VTE: SCD given hemoptysis Code: Full Dispo: Home, ~24-48hrs Time Spent Managing Pts Care (In Minutes): 55
--- NOTE | 2024-10-04 14:42 | RAD REPORT ---
EXAM: Chest Pa And Lat (2 Views) HISTORY: 73 years Male pneumonia COMPARISON: 10/03/2024 FINDINGS: LUNGS/PLEURA: Similar prominence of the pulmonary markings in the lung bases bilaterally. More linear type opacities present left lung base but which are similar. CARDIAC/MEDIASTINUM: The cardiac silhouette is within normal limits. UPPER ABDOMEN: No significant abnormality. BONES: No acute abnormality. LINES/TUBES/OTHER: N/A IMPRESSION: Similar aeration of the lungs compared to 10/03/2024. Most of the suspected acute pulmonary findings a re not well visualized radiographically but were seen on the CT from yesterday. No consolidation or evidence of edema.
[2024-10-04 21:50] VITALS: O2SAT 92
[2024-10-05 05:19] VITALS: TEMP 97.7
[2024-10-05 06:05] LABS: Absolute Lymphocytes (CBC) 0.3 K/uL (0.7-4.9); Absolute Monocytes 0.4 K/uL (0.1-1.3); Absolute Neutrophil 13.6 K/uL (1.8-8.0); Basophils % 0.2 % (0-1.3); Hematocrit 39.2 % (39.6-49.0); Hemoglobin 13.3 g/dL (13.6-17.9); Lymphocytes % 1.9 % (15.3-44.8); MCH 34.5 pg (27.0-35.0); MCHC 33.9 g/dL (32.0-36.0); MCV 101.8 fL (80-100); MPV 7.5 fL (7.6-11.3); Monocytes % 2.7 % (3.3-12.3); Neutrophils % 95.2 % (41.7-73.7); Platelets 268 thou/uL (152-406); RBC Red Blood Cell Count 3.85 M/uL (4.33-5.43); Red Cell Distribution Width 13.1 % (12.1-15.2)
[2024-10-05 06:20] LABS: ALT/SGPT 15 U/L (16-61); Albumin 3.1 g/dL (3.4-5.0); Albumin/Globulin Ratio 0.8 (1.1-1.8); Alkaline Phosphatase 43 U/L (45-117); Anion Gap 10.7 mEq/L (5.0-15.0); BUN Blood Urea Nitrogen 31 mg/dL (7-18); Bicarbonate 25 mEq/L (21-32); Bilirubin Total 0.6 mg/dL (0.2-1.0); Globulin 3.9 g/dL (2.3-3.5); Glomerular Filtration Rate 62 ml/min (=/>90); Glucose Level 141 mg/dL (74-106); Potassium 3.7 mEq/L (3.5-5.1); Sodium Level 139 mEq/L (136-145)
[2024-10-05 06:21] LABS: AST/SGOT < 10 U/L (15-37)
--- NOTE | 2024-10-05 11:00 | P.PN ---
Subjective Date of Service: 10/05/24 Chief Complaint: Shortness of breath with hemoptysis Subjective: Improving (Patient is improving no further hemoptysis will dyspnea) Review of Systems 10-point ROS is otherwise unremarkable Physical Examination - Vital Signs Temperature: 97.7 F Blood Pressure: 116/53 Pulse: 92 Respirations: 18 Pulse Ox (%): 92 - Physical Exam General: Alert, Oriented x3 Neck: Supple Respiratory: Clear to auscultation bilaterally Cardiovascular: No edema, Regular rate/rhythm, Normal S1 S2 - Studies Microbiology Data (last 24 hrs): 10/03/24 06:15 Throat Culture & Sensitivity - Final NORMAL UPPER RESPIRATORY ECHO GROWN. Assessment And Plan - Current Problems (Diagnosis) (1) Hemoptysis Current Visit: Yes Status: Acute Plan: 73 years of age admitted with interstitial pneumonia hemoptysis is doing better no further hemoptysis hemoglobin stable workup is pending recommend discharge home on levofloxacin and prednisone 20 mg twice a day for a week levofloxacin for a week labs chemistries reviewed white count is elevated I suspect from the steroid unsatisfactory follow-up with me in 2 weeks I ordered P ANCA
--- NOTE | 2024-10-05 11:43 | P.DS ---
Admission Date: 10/04/24 Discharge Date: 10/05/24 Disposition: ROUTINE DISCHARGE Reason for Admission: Shortness of breath with hemoptysis Consultations: Pulmonology - Dr. Frey Brief History of Present Illness: 73yo M, PMH: COPD (without home oxygen use), anxiety, and depression, Patient presents to the ED with shortness of breath and coughing of blood x 5 days. Patient states that he has had pneumonia several times in the past with the same symptoms. No over the counter medications were used for symptom management. Patient also reports nausea and vomiting episodes. ED workup showed chest x-ray with streaky left more than right basilar airspace opacities, CT of Chest/Abd/pelvis with subsolid peripheral right lower lobe nodule measuring 8 mm, WBC 17.1, lactic 1.4, CRP 105, T. bili 1.4, creatinine 1.20, BUN 20, PT 13.2, lipase 20. Patient received 2 L fluid bolus and was started on vancomycin and cefepime while in ED. Patient now being admitted for pneumonia/sepsis at this time. Hospital Course: Problem List: Acute hypoxic respiratory failure secondary to pneumonia Hemoptysis, resolved Moderate Aortic Stenosis, new finding Fatty liver Chronic COPD 8mm RLL nodule; incidental finding Anxiety/Depression Physician discharge instructions: Patient presented with hemoptysis x5 days associated with worsening dyspnea secondary to atypical infection/pneumonia and COPD exacerbation. Chest xray noted streaky bibasilar airspace opacities, concerning for infection vs mild edema. CT chest noted Patchy central and dependent bilateral airspace opacities with interlobular septal thickening which could be pneumonia or pulmonary edema. Dr. Frey, pulm was consulted. Patient was started on IV steroids and low dose IV lasix in addition to empiric IV antibiotics and had improvement of his symptoms. IV antibiotics were deescalated to oral levaquin and patient continued to improve. Dr. Frey recommended 1 week of prednisone twice daily and levaquin on discharge Patient was feeling better, breathing more comfortably on room air, and was deemed stable for discharge. Follow up with Dr. Frey, ethanol maintenance mechanic in ~2 weeks for further management. CT chest incidentally noted a Subcentimeter peripheral right lower lobe 8 mm nodule. Advised patient to follow up with PCP for further discussion, and to consider repeat CT in 1-3 months to re-assess nodule. Echo was done: noted moderate Aortic stenosis - valve area: 1.2 cm2 Medications: Levaquin 750 mg daily x1 week Prednisone 20 mg twice daily for 1 week Follow up: PCP 3-5 days isiah Fang in 2 weeks Cardiology in 1-2 months Please call to schedule / confirm appointments Physical Exam: GEN: Alert, oriented, NAD CV: Regular rate and rhythm, no edema Pulm: Nonlabored respirations on room air ABD: soft, nontender, nondistended Neuro: Normal speech, normal affect Vital Signs/Physical Exam: Temp Pulse Resp BP Pulse Ox 97.7 F 92 H 18 116/53 L 92 10/05/24 11:00 10/05/24 11:00 10/05/24 11:00 10/05/24 11:00 10/05/24 11:00 Laboratory Data at Discharge: WBC 14.30 thou/uL (4.3-10.9) H 10/05/24 05:30 Hgb 13.3 g/dL (13.6-17.9) L 10/05/24 05:30 Hct 39.2 % (39.6-49.0) L 10/05/24 05:30 Plt Count 268 thou/uL (152-406) 10/05/24 05:30 PT 15.7 SECONDS (10.0-13.0) H 10/04/24 04:01 INR 1.40 10/04/24 04:01 APTT 29.0 SECONDS (24.3-36.9) 10/03/24 06:15 Sodium 139 mEq/L (136-145) 10/05/24 05:30 Potassium 3.7 mEq/L (3.5-5.1) 10/05/24 05:30 BUN 31 mg/dL (7-18) H 10/05/24 05:30 Creatinine 1.22 mg/dL (0.70-1.30) 10/05/24 05:30 Glucose 141 mg/dL (74-106) H 10/05/24 05:30 Total Bilirubin 0.6 mg/dL (0.2-1.0) 10/05/24 05:30 AST < 10 U/L (15-37) L 10/05/24 05:30 ALT 15 U/L (16-61) L 10/05/24 05:30 Alkaline Phosphatase 43 U/L (45-117) L 10/05/24 05:30 Lipase 20 U/L (13-75) 10/03/24 07:05 Home Medications: Buspirone HCl [Buspar*] 10 mg PO DAILY 10/03/24 Desvenlafaxine [Desvenlafaxine ER] 100 mg PO DAILY 10/03/24 Losartan Potassium [Cozaar] 25 mg PO DAILY 10/03/24 Quetiapine [Seroquel*] 200 mg PO BEDTIME 10/03/24 Trazodone HCl 100 mg PO BEDTIME 10/03/24 Benzonatate [Tessalon Perle] 100 mg PO TID PRN #15 cap 10/05/24 levoFLOXacin [Levaquin] 750 mg PO DAILY 7 Days #7 tab 10/05/24 predniSONE [Deltasone] 20 mg PO BID 7 Days #14 tab 10/05/24 New Medications: levoFLOXacin [Levaquin] 750 mg PO DAILY 7 Days #7 tab predniSONE [Deltasone] 20 mg PO BID 7 Days #14 tab Benzonatate [Tessalon Perle] 100 mg PO TID PRN #15 cap PRN Reason: Cough Physician Discharge Instructions: Physician discharge instructions: Patient presented with hemoptysis x5 days associated with worsening dyspnea secondary to atypical infection/pneumonia and COPD exacerbation. Chest xray noted streaky bibasilar airspace opacities, concerning for infection vs mild edema. CT chest noted Patchy central and dependent bilateral airspace opacities with interlobular septal thickening which could be pneumonia or pulmonary edema. Dr. Frey pulmiguel angel was consulted. Patient was started on IV steroids and low dose IV lasix in addition to empiric IV antibiotics and had improvement of his symptoms. IV antibiotics were deescalated to oral levaquin and patient continued to improve. Dr. Frey recommended 1 week of prednisone twice daily and levaquin on discharge Patient was feeling better, breathing more comfortably on room air, and was deemed stable for discharge. Follow up with Dr. Frey, ethanol maintenance mechanic in ~2 weeks for further management. CT chest incidentally noted a Subcentimeter peripheral right lower lobe 8 mm nodule. Advised patient to follow up with PCP for further discussion, and to consider repeat CT in 1-3 months to re-assess nodule. Echo was done: noted moderate Aortic stenosis - valve area: 1.2 cm2 Medications: Levaquin 750 mg daily x1 week Prednisone 20 mg twice daily for 1 week Follow up: PCP 3-5 days isiah Fang in 2 weeks Cardiology in 1-2 months Please call to schedule / confirm appointments Followup: Mehrdad Mercado MD [ACTIVE - CAN ADMIT] - Dar Santacruz DO [Primary Care Provider] - Time spent managing pt's care (in minutes): 45
[2024-10-05 12:42] VITALS: BP 116/57
--- NOTE | 2024-10-07 12:12 | EKG ---
Test Date: 2024-10-04 Test Time: 13:34:54 Tunnel Heading Supervisor: IRVIN MEASUREMENT RESULTS: Intervals: Rate: 102 [place]: 138 QRSD: 124 QT: 378 QTc: 492 [place]: P: 62 [place]: 138 QRS: -55 T: 107 INTERPRETIVE STATEMENTS: Sinus tachycardia with premature atrial complexes with aberrant conduction Left anterior fascicular block Left ventricular hypertrophy with QRS widening and repolarization abnormality Abnormal ECG Compared to ECG 10/03/2024 06:11:24 Atrial premature complex(es) now present Aberrant conduction of supraventricular beat(s) now present Right bundle-branch block no longer present Bifascicular block no longer present Myocardial infarct finding no longer present Electronically Signed On 10-07-24 12:05:55 [employer] by Mehrdad Mercado
[2024-10-09 13:33] LABS: Anti-Nuclear Antibody Screen Negative (Negative)
== END 2024-10-05 12:59 | disposition home or self-care (01) | DRG 871 ==
LOC: ER 05:54 → ERHOLD 09:29 → 2ND 17:22 → OBSVTOIN 10-04 17:37
PROVIDERS: ADMIT Internal Medicine; ATTEND Hospitalist
DX: A41.9 Sepsis, unspecified organism (principal); J18.9 Pneumonia, unspecified organism; J96.01 Acute respiratory failure with hypoxia; J44.0 Chronic obstructive pulmonary disease with (acute) lower respiratory infection; J44.1 Chronic obstructive pulmonary disease with (acute) exacerbation; R04.2 Hemoptysis; G47.00 Insomnia, unspecified; F32.A Depression, unspecified; F41.9 Anxiety disorder, unspecified; K76.0 Fatty (change of) liver, not elsewhere classified; I35.0 Nonrheumatic aortic (valve) stenosis; R91.8 Other nonspecific abnormal finding of lung field; Z79.52 Long term (current) use of systemic steroids; Z11.52 Encounter for screening for COVID-19; Z79.899 Other long term (current) drug therapy; Z96.649 Presence of unspecified artificial hip joint; Z87.891 Personal history of nicotine dependence
CPT/HCPCS: 36415; 71045; 71046; 71250; 74176; 76705; 80053; 80202; 82248; 83520; 83605; 83690; 83880; 84484; 85025; 85610; 85730; 86021; 86038; 86140; 87040; 87070; 87428; 93005; 93306; 94640; 94760; 96361; 96365; 96375; 99285; G0378; J0692; J1940; J2470; J2919; J3535; J7030; J7040; J7613; J7644

== ENCOUNTER 2024-10-16 16:26 | Inpatient (IN) | payer OTHER ==
--- OUTSIDE RECORDS SUMMARY | 2024-10-16 16:30 | XMS REPORT | Continuity of Care Document ---
Author Name Unknown Address [address] [place] [address] [place] [id number] [facility] Address [address] [place] [address] [address] [place] [address] Care Team Providers Care Doctor Of Osteopathy Name Role Phone No, PCP Attending Clinician Unavailable Encounters Start Date/Time End Date/Time Encounter Type Admission Type Attending Clinicians Care Facility Care Department Encounter ID Source 2024-09-30 14:04:01 Outpatient No, PCP JAZMIN [facility] [id number] [facility] 2024-09-12 14:16:01 Outpatient No, PCP JAZMIN [facility] [id number] [facility] 2024-09-10 08:15:01 Outpatient No, PCP CLS [facility] [id number] [facility]
[2024-10-16] MEDS ORDERED: ALBUTEROL 2.5 MG/3 ML NEB SOL ONE (17:57)
[2024-10-16] MEDS ORDERED: IPRATROPIUM BROM 0.5MG/2.5ML ONE (17:57)
[2024-10-16 18:02] LABS: Absolute Basophils 0.1 K/uL (0-0.5); Absolute Lymphocytes (CBC) 0.5 K/uL (0.7-4.9); Absolute Monocytes 0.8 K/uL (0.1-1.3); Absolute Neutrophil 27.3 K/uL (1.8-8.0); Basophils % 0.4 % (0-1.3); Eosinophils % 0.2 % (0-4.4); Hematocrit 41.5 % (39.6-49.0); Hemoglobin 14.3 g/dL (13.6-17.9); Lymphocytes % 1.8 % (15.3-44.8); MCH 34.8 pg (27.0-35.0); MCHC 34.5 g/dL (32.0-36.0); MCV 100.7 fL (80-100); MPV 6.7 fL (7.6-11.3); Monocytes % 2.9 % (3.3-12.3); Neutrophils % 94.7 % (41.7-73.7); Platelets 237 thou/uL (152-406); RBC Red Blood Cell Count 4.12 M/uL (4.33-5.43); Red Cell Distribution Width 13.4 % (12.1-15.2)
[2024-10-16 18:20] LABS: PT Prothrombin Time 12.9 SECONDS (10-13.0); PTT, Activated Partial Thromb 28.9 SECONDS (27.2-37.4); Protime INR 1.14
[2024-10-16 18:24] LABS: Albumin 2.9 g/dL (3.4-5.0); Albumin/Globulin Ratio 0.8 (1.1-1.8); Bilirubin Total 1.3 mg/dL (0.2-1.0); Globulin 3.6 g/dL (2.3-3.5); Protein, Total 6.5 g/dL (6.4-8.2); Troponin High Sensitivity 4.7 pg/mL (<58.9)
[2024-10-16 19:18] LABS: Band Neutrophils 33 % (0-1); Differential Total Cells Count 100; Lymphocytes 2 % (15-42); Metamyelocytes 1 % (0-0); Monocytes 1 % (0-10); Segmented Neutrophils 63 % (40-80)
[2024-10-16 19:19] LABS: Blood Morphology Comment NOTED (NOT SEEN); Burr Cells 2+; Platelet Estimate ADEQ
--- NOTE | 2024-10-16 19:20 | RAD REPORT ---
EXAMINATION: ONE VIEW CHEST XR CLINICAL INDICATION: Male, 73 years old.,DYSPNEA TECHNIQUE: Frontal chest projection is submitted. Examination is limited by patient positioning and t echnique. COMPARISON: 10/04/2024 FINDINGS: Patchy right mid to basal central predominant airspace opacities. No pneumothorax or sizable effusio n. The heart is normal in size. Mediastinal contours are unremarkable. IMPRESSION: Patchy right mid to basal central predominant airspace opacities, concerning for pneumonia.
--- NOTE | 2024-10-16 20:13 | EDPHYS ---
Physician Documentation [facility] Name: Julio Reyna Age: 73 yrs Sex: Male : 1950 Arrival Date: 10/16/2024 Time: 16:26 Bed 26 [facility] MD: ED Physician Allen Malone HPI: 10/16 18:15 This 73 yrs old Male presents to ER via Wheelchair with complaints of Pneumonia. rt 18:15 Patient presents to the ED with continued dyspnea, fevers after being discharged from rt the hospital about 11 days ago from a pneumonia. He finished his course of steroids, antibiotics, states that his symptoms are worsening. Denies other acute complaints at this time, symptoms are moderate severity, no other aggravating or alleviating factors.. Historical: - Allergies: 17:07 No Known Allergies; ph - Home Meds: 17:07 BuSpar Oral 10 mg daily [Active]; desvenlafaxine 100 mg Oral Tablet 1 tab daily ph [Active]; losartan 25 mg Oral tablet 1 tab daily [Active]; quetiapine 200 mg Oral tablet 1 tab every day at bedtime [Active]; trazodone 100 mg Oral tablet 1 tab every day at bedtime [Active]; - PMHx: 17:07 Chronic obstructive lung disease; ph - PSHx: 17:07 hip replacements; ph - Immunization history:: Adult Immunizations unknown. - Infectious Disease History:: Denies. - Family history:: not pertinent. - Social history:: Smoking status: Patient/guardian denies using tobacco, but has a distant history of tobacco abuse. ROS: 18:15 Constitutional: Negative for fever, chills, and weight loss, Cardiovascular: Negative rt for chest pain, palpitations, and edema, Abdomen/GI: Negative for abdominal pain, nausea, vomiting, diarrhea, and constipation, MS/Extremity: Negative for injury and deformity, Skin: Negative for injury, rash, and discoloration, Neuro: Negative for headache, weakness, numbness, tingling, and seizure, 18:15 Respiratory: Positive for cough, shortness of breath, Exam: 18:15 Constitutional: This is a well developed, well nourished patient who is awake, alert, rt and in no acute distress. Head/Face: Normocephalic, atraumatic. Chest/axilla: Normal chest wall appearance and motion. Nontender with no deformity. No lesions are appreciated. Cardiovascular: Regular rate and rhythm with a normal S1 and S2. No gallops, murmurs, or rubs. Normal PMI, no JVD. No pulse deficits. Abdomen/GI: Soft, non-tender, with normal bowel sounds. No distension or tympany. No guarding or rebound. No evidence of tenderness throughout. Skin: Warm, dry with normal turgor. Normal color with no rashes, no lesions, and no evidence of cellulitis. MS/ Extremity: Pulses equal, no cyanosis. Neurovascular intact. Full, normal range of motion. Neuro: Awake and alert, GCS 15, oriented to person, place, time, and situation. Cranial nerves II-XII grossly intact. Motor strength 5/5 in all extremities. Sensory grossly intact. Cerebellar exam normal. Normal gait. 18:15 Respiratory: Wheezes heard at the bases, no respiratory distress, 18:15 ECG was reviewed by the Attending Physician. rt Vital Signs: 17:08 BP 126 / 57; Pulse 109; Resp 18; Temp 98.9(O); Pulse Ox 91% on R/A; Weight 88.45 kg; ph Height 5 ft. 10 in. ; 18:00 BP 119 / 65; Pulse 101; Resp 24; Pulse Ox 93% on R/A; me1 19:00 BP 123 / 66; Pulse 103; Resp 27; Pulse Ox 92% on R/A; me1 20:00 BP 122 / 81; Pulse 109; Resp 24; Pulse Ox 89% on R/A; me1 20:02 Pulse Ox 94% on 2 lpm NC; me1 21:00 BP 134 / 79; Pulse 102; Resp 22; Pulse Ox 87% on 2 lpm NC; me1 22:00 BP 126 / 66; Pulse 101; Resp 23; Pulse Ox 90% on 4 lpm NC; me1 17:08 Body Mass Index 27.98 (88.45 kg, 177.8 cm) ph 20:00 applied o2 at 2 lpm via nc me1 21:00 increased o2 to 3 lpm via nc me1 22:00 increased to 4 lpm via nc me1 MDM: 17:19 Medical Screening Exam initiated rt 20:54 Differential Diagnosis Pneumonia, bronchospasm, sepsis. Data reviewed: vital signs, rt nurses notes, lab test result(s), EKG, radiologic studies. Consideration of Admission/Observation Patient was admitted/placed on observation. Management of patient was discussed with the following: Hospitalist: Agrees to admit. I considered the following discharge prescriptions or medication management in the emergency department Medications were administered in the Emergency Department. See MAR. Independent interpretation of the following test(s) in the Emergency Department X-Ray: My interpretation is Pneumonia syndrome interpretation of x-ray images. Test considered but Not performed: CT: Low suspicion for PE, CT angiogram not gated. Care significantly affected by the following chronic conditions: Chronic Obstructive Pulmonary Disease. Post IV fluid administration reassessment for Sepsis: Sepsis focused reassessment complete. Focused assessment performed: October 16, 2024 at 20:00 Heart: Regular rate/rhythm. Lungs: Diminished air movement noted. Neuro: Cardio: Cardiovascular exam improved from previous exam. Heart rate and blood pressure have improved. Respiratory: Respiratory exam improved from previous exam. Counseling: I had a detailed discussion with the patient and/or guardian regarding the historical points, exam findings, and any diagnostic results supporting the discharge/admit diagnosis, lab results, radiology results, the need for further work-up and treatment in the hospital. ED course: Patient did not meet SIRS criteria until leukocytosis was returned and did not have clear source of infection until pneumonia was found on x-ray, at that time, fluids, IV antibiotics were ordered.. 10/16 17:20 Order name: Blood Culture Adult (2) rt 10/16 17:20 Order name: CBC with Diff; Complete Time: 19:23 rt 10/16 17:20 Order name: CMP; Complete Time: 19:23 rt 10/16 17:20 Order name: Lactate w/ 2H reflex if indic.; Complete Time: 19:23 rt 10/16 17:20 Order name: Protime (+inr); Complete Time: 19:23 rt 10/16 17:20 Order name: Ptt, Activated; Complete Time: 19:23 rt 10/16 17:20 Order name: BNP; Complete Time: 19:23 rt 10/16 17:20 Order name: Troponin High Sensitivity; Complete Time: 19:23 rt 10/16 18:05 Order name: Manual Differential; Complete Time: 19:23 EDMS 10/16 18:18 Order name: Glucose, Ancillary Testing; Complete Time: 19:23 EDMS 10/16 18:28 Order name: Ghost Lactate-NO COLLECT Timer; Complete Time: 20:31 EDMS 10/16 20:34 Order name: Urinalysis w/ reflexes EDMS 10/16 20:34 Order name: CBC with Automated Diff EDMS 10/16 20:34 Order name: CBC with Automated Diff EDDE 10/16 20:34 Order name: Comprehensive Metabolic Panel EDDE 10/16 20:34 Order name: Comprehensive Metabolic Panel [facility] 10/16 17:20 Order name: Chest Single View XRAY; Complete Time: 19:23 rt 10/16 17:20 Order name: EKG; Complete Time: 17:21 rt 10/16 17:20 Order name: Accucheck; Complete Time: 18:10 rt 10/16 17:20 Order name: Cardiac monitoring; Complete Time: 18:10 rt 10/16 17:20 Order name: EKG - Nurse/Tech; Complete Time: 18:10 rt 10/16 17:20 Order name: IV Saline Lock - Large Bore; Complete Time: 17:50 rt 10/16 17:20 Order name: Labs collected and sent; Complete Time: 17:50 rt 10/16 17:20 Order name: O2 Per Protocol; Complete Time: 17:50 rt 10/16 17:20 Order name: O2 Sat Monitoring; Complete Time: 17:50 rt 10/16 17:20 Order name: Vital Signs; Complete Time: 17:50 rt EC:15 Rate is 100 beats/min. Rhythm is regular, Sinus tachycardia with No ectopy, Right rt bundle branch block. Left axis deviation noted. IA interval is normal. QRS interval is normal. QT interval is normal. No Q waves. No ST changes noted. Interpreted by me. Administered Medications: 18:10 Drug: Albuterol Inhalation 2.5 mg Inhalation once Route: Inhalation; me1 21:59 Follow up: Response: No adverse reaction; Wheezing diminished me1 18:10 Drug: Ipratropium Inhalation Aerosol 0.5 mg Inhalation once Route: Inhalation; me1 21:59 Follow up: Response: No adverse reaction; Wheezing diminished me1 21:14 Drug: Cefepime IVPB 2 grams IVPB at 200 ml/hr once over 30 mins; (mix in NS 100 mL) me1 Route: IVPB; Rate: 200 ml/hr; Infused Over: 30 mins; Site: right antecubital; 21:59 Follow up: Response: No adverse reaction; IV Status: Completed infusion me1 21:14 Drug: NS 0.9% IV 1000 ml IV at 1 bolus Per protocol; to be given as a bolus over 60 me1 minutes Route: IV; Rate: 1 bolus; Site: right antecubital; 22:39 Follow up: Response: No adverse reaction; IV Status: Completed infusion; IV Intake: me1 1000ml 21:59 Drug: vancoMYCIN IVPB 1 grams IVPB once over 2 hrs Route: IVPB; Infused Over: 2 hrs; me1 Site: right antecubital; 23:26 Follow up: IV Status: Infusion continued upon admission me1 Disposition Summary: 10/16/24 20:13 Hospitalization Ordered Notes: Hospitalization Status: Inpatient Admission rt Provider: Tony Winkler rt Location: Telemetry/[facility] (Inpatient) rt Condition: Fair rt Problem: new rt Symptoms: have improved rt Bed/Room Type: Standard rt Room Assignment: 218(10/16/24 21:14) Diagnosis - Healthcare associated pneumonia rt - Hypoxia rt - Sepsis rt Forms: - Medication Reconciliation Form rt - SBAR form rt - Leadership Thank You Letter rt Critical care time excluding procedures: 20:54 Critical care time: Bedside Care: 30 minutes, Consultation: 5 minutes. Total time: 35 rt minutes Signatures: Dispatcher [employer] So Ryan RN RN kl Hall, Patricia, RN RN Allen Malone MD MD rt Dot Galindo RN RN me1 Corrections: (The following items were deleted from the chart) 21:14 20:13 rt ham
--- NOTE | 2024-10-16 20:13 | ER ---
Nurse's Notes [facility] Name: Julio Reyna Age: 73 yrs Sex: Male : 1950 Arrival Date: 10/16/2024 Time: 16:26 Bed 26 [facility] MD: Diagnosis: Healthcare associated pneumonia;Hypoxia;Sepsis Presentation: 10/16 17:08 Chief complaint: Patient states: SOB, cough, chest pain that has been ongoing since d/c ph from hospital (was admitted for pneumonia). also reports fever TMAX 102. Coronavirus screen: Vaccine status: Patient reports receiving the 2nd dose of the covid vaccine. Ebola Screen: No symptoms or risks identified at this time. Initial Sepsis Screen: Does the patient meet any 2 criteria? No. Patient's initial sepsis screen is negative. Does the patient have a suspected source of infection? No. Patient's initial sepsis screen is negative. Risk Assessment: Do you want to hurt yourself or someone else? Patient reports no desire to harm self or others. 17:08 Method Of Arrival: Wheelchair ph 17:08 Acuity: KARSON 3 ph 22:03 Onset of symptoms is unknown. me1 Historical: - Allergies: 17:07 No Known Allergies; ph - Home Meds: 17:07 BuSpar Oral 10 mg daily [Active]; desvenlafaxine 100 mg Oral Tablet 1 tab daily ph [Active]; losartan 25 mg Oral tablet 1 tab daily [Active]; quetiapine 200 mg Oral tablet 1 tab every day at bedtime [Active]; trazodone 100 mg Oral tablet 1 tab every day at bedtime [Active]; - PMHx: 17:07 Chronic obstructive lung disease; ph - PSHx: 17:07 hip replacements; ph - Immunization history:: Adult Immunizations unknown. - Infectious Disease History:: Denies. - Family history:: not pertinent. - Social history:: Smoking status: Patient/guardian denies using tobacco, but has a distant history of tobacco abuse. Screenin:20 [facility] ED Fall Risk Assessment (Adult) History of falling in the last 3 months, me1 including since admission No falls in past 3 months (0 pts) Confusion or Disorientation No (0 pts) Intoxicated or Sedated No (0 pts) Impaired Gait No (0 pts) Mobility Assist Device Used No (0 pt) Altered Elimination No (0 pt) Score/Fall Risk Level 0 - 2 = Low Risk Maintained a safe environment, Provided non-skid footwear, Hourly rounding (assess needs \T\ fall precautionary measures) done. Abuse screen: Denies threats or abuse. Nutritional screening: No deficits noted. Tuberculosis screening: No symptoms or risk factors identified. Assessment: 17:20 General: Appears ill, well groomed, well developed, well nourished, Behavior is calm, me1 cooperative, appropriate for age, Reports SOB, cough, chest pain that has been ongoing since d/c from hospital (was admitted for pneumonia). also reports fever TMAX 102. Pain: Complains of pain in chest Pain does not radiate. Pain currently is 4 out of 10 on a pain scale. Quality of pain is described as tender, Pain began gradually, Is continuous. Neuro: Level of Consciousness is awake, alert, obeys commands, Oriented to person, place, time, situation, Appropriate for age. Cardiovascular: Patient's skin is warm and dry. Cardiovascular: Reports chest pain, shortness of breath. Respiratory: Airway is patent Respiratory effort is even, unlabored, Respiratory pattern is regular, symmetrical. Respiratory: Reports shortness of breath at rest on exertion cough that is persistent. GI: No signs and/or symptoms were reported involving the gastrointestinal system. : No signs and/or symptoms were reported regarding the genitourinary system. EENT: No signs and/or symptoms were reported regarding the EENT system. Derm: Skin is intact, is healthy with good turgor, Skin is pink, warm \T\ dry. Musculoskeletal: No signs and/or symptoms reported regarding the musculoskeletal system. Vital Signs: 17:08 BP 126 / 57; Pulse 109; Resp 18; Temp 98.9(O); Pulse Ox 91% on R/A; Weight 88.45 kg; ph Height 5 ft. 10 in. ; 18:00 BP 119 / 65; Pulse 101; Resp 24; Pulse Ox 93% on R/A; me1 19:00 BP 123 / 66; Pulse 103; Resp 27; Pulse Ox 92% on R/A; me1 20:00 BP 122 / 81; Pulse 109; Resp 24; Pulse Ox 89% on R/A; me1 20:02 Pulse Ox 94% on 2 lpm NC; me1 21:00 BP 134 / 79; Pulse 102; Resp 22; Pulse Ox 87% on 2 lpm NC; me1 22:00 BP 126 / 66; Pulse 101; Resp 23; Pulse Ox 90% on 4 lpm NC; me1 17:08 Body Mass Index 27.98 (88.45 kg, 177.8 cm) ph 20:00 applied o2 at 2 lpm via nc me1 21:00 increased o2 to 3 lpm via nc me1 22:00 increased to 4 lpm via nc me1 ED Course: 16:32 Patient arrived in ED. cj3 16:41 Allen Malone MD is Attending Physician. rt 17:12 Triage completed. ph 17:12 Arm band placed on. ph 17:20 Patient has correct armband on for positive identification. Bed in low position. Call nd1 light in reach. Side rails up X 1. Provided Education on: POC. Verbalized understanding.. Client placed on continuous cardiac and pulse oximetry monitoring. NIBP monitoring applied. monitor tech on. Pulse ox on. NIBP on. 17:20 No provider procedures requiring assistance completed. me1 17:24 Dot Galindo, RN is Primary Nurse. me1 17:46 Initial lab(s) drawn, by nd, sent to lab. First set of blood cultures drawn by nd. me1 17:50 Troponin High Sensitivity Sent. me1 17:50 BNP Sent. me1 17:50 Blood Culture Adult (2) Sent. me1 17:50 CBC with Diff Sent. me1 17:50 CMP Sent. me1 17:50 Lactate w/ 2H reflex if indic. Sent. me1 17:50 Protime (+inr) Sent. me1 17:50 Ptt, Activated Sent. me1 17:51 Inserted saline lock: 22 gauge in right antecubital area, using aseptic technique. me1 17:55 Second set of blood cultures drawn by nd. me1 18:10 EKG done, by ED staff, reviewed by Allen Malone MD. me1 18:11 Chest Single View XRAY In Process Unspecified. EDMS 20:12 Tony Winkler MD is Hospitalizing Provider. rt 22:00 Urinalysis w/ reflexes Sent. me1 22:13 Blood Culture Adult (2) Sent. me1 23:25 Patient admitted, IV remains in place. me1 Administered Medications: 18:10 Drug: Albuterol Inhalation 2.5 mg Inhalation once Route: Inhalation; me1 21:59 Follow up: Response: No adverse reaction; Wheezing diminished me1 18:10 Drug: Ipratropium Inhalation Aerosol 0.5 mg Inhalation once Route: Inhalation; me1 21:59 Follow up: Response: No adverse reaction; Wheezing diminished me1 21:14 Drug: Cefepime IVPB 2 grams IVPB at 200 ml/hr once over 30 mins; (mix in NS 100 mL) me1 Route: IVPB; Rate: 200 ml/hr; Infused Over: 30 mins; Site: right antecubital; 21:59 Follow up: Response: No adverse reaction; IV Status: Completed infusion me1 21:14 Drug: NS 0.9% IV 1000 ml IV at 1 bolus Per protocol; to be given as a bolus over 60 me1 minutes Route: IV; Rate: 1 bolus; Site: right antecubital; 22:39 Follow up: Response: No adverse reaction; IV Status: Completed infusion; IV Intake: me1 1000ml 21:59 Drug: vancoMYCIN IVPB 1 grams IVPB once over 2 hrs Route: IVPB; Infused Over: 2 hrs; me1 Site: right antecubital; 23:26 Follow up: IV Status: Infusion continued upon admission me1 Medication: 17:20 VIS not applicable for this client. me1 Intake: 22:39 IV: 1000ml; Total: 1000ml. me1 Outcome: 20:13 Decision to Hospitalize by Provider. rt 23:25 Admitted to Med/surg accompanied by nurse, via wheelchair, room 218, with chart, Report me1 called to faxed, receipt confirmed with Christopher 23:25 Condition: stable 23:25 Instructed on the need for admit, 23:25 Patient left the ED. me1 Signatures: Dispatcher [employer] Trisha Graham RN RN ph Allen Malone MD MD rt Dot Galindo RN RN nd1 Tiffanie Melara cj3 Corrections: (The following items were deleted from the chart) 22:03 17:08 Chief complaint: Patient states: SOB, cough, chest pain that has been ongoing me1 since d/c from hospital (was admitted for pneumonia). also reports fever TMAX 102 ph
[2024-10-16] MEDS ORDERED: ONDANSETRON 4 MG/2 ML VIAL IV PRN (20:28)
[2024-10-16] MEDS ORDERED: ALBUTEROL 2.5 MG/3 ML NEB SOL NEB PRN (20:28)
[2024-10-16] MEDS ORDERED: ACETAMINOPHEN 325 MG TABLET PO PRN (20:28)
--- NOTE | 2024-10-16 20:33 | P.HP ---
Certification for Inpatient Patient admitted to: Inpatient With expected LOS: >2 Midnights Practitioner: I am a practitioner with admitting privileges, knowledge of patient current condition, hospital course, and medical plan of care. Services: Services provided to patient in accordance with Admission requirements found in Title 42 Section 412.3 of the Code of Federal Regulations Patient History Date of Service: 10/16/24 Reason for admission: SOB/ Cough History of Present Illness: 73-year-old male with past medical history of COPD not on any home oxygen use, anxiety, and depression, came to ER with shortness of breath which has been progressively worsening over the last 2 weeks. Patient was recently been admitted to the hospital for pneumonia and was treated with antibiotics. Complains of subjective fever. No chest pain or shortness of breath. No nausea vomiting or diarrhea. No sick contacts. Denies any hemoptysis this time Cough is productive with mucoid expectoration Patient was assessed in the ER and is admitted for further management of pneumonia Allergies No Known Allergies Allergy (Unverified 10/03/24 10:06) Home medications list reviewed: Yes Home Medications: Buspirone HCl [Buspar*] 10 mg PO DAILY 10/03/24 Desvenlafaxine [Desvenlafaxine ER] 100 mg PO DAILY 10/03/24 Losartan Potassium [Cozaar] 25 mg PO DAILY 10/03/24 Quetiapine [Seroquel*] 200 mg PO BEDTIME 10/03/24 Trazodone HCl 100 mg PO BEDTIME 10/03/24 Benzonatate [Tessalon Perle] 100 mg PO TID PRN #15 cap 10/05/24 levoFLOXacin [Levaquin] 750 mg PO DAILY 7 Days #7 tab 10/05/24 predniSONE [Deltasone] 20 mg PO BID 7 Days #14 tab 10/05/24 - Past Medical/Surgical History Diabetic: No Past Medical History: Reviewed- Non-Contributory -: COPD -: Depression with anxiety Past Surgical History: Reviewed- Non-Contributory -: Bilateral hip surgery - Social History Smoking Status: Former smoker Alcohol use: No CD- Drugs: No Caffeine use: Yes Review of Systems 10-point ROS is otherwise unremarkable Physical Examination - Vital Signs Temperature: 97.8 F Blood Pressure: 128/78 Pulse: 82 Respirations: 20 Pulse Ox (%): 94 - Physical Exam General: Alert, Oriented x3, Cooperative, Mild distress HEENT: Atraumatic, Normocephalic Neck: Supple, No LAD Respiratory: Clear to auscultation bilaterally, Crackles/rales Cardiovascular: Regular rate/rhythm, Normal S1 S2 Capillary refill: <2 Seconds Gastrointestinal: Soft and benign, W/out hepatosplenomegaly, No tenderness Musculoskeletal: No clubbing, No swelling Integumentary: No rashes, No breakdown Neurological: Normal speech, Normal strength at 5/5 x4 extr, Cranial nerves 3-12 intact, Normal reflexes 2+ Lymphatics: No axilla or inguinal lymphadenopathy - Studies Laboratory Data (last 24 hrs) 10/16/24 10/16/24 10/16/24 17:46 17:46 17:46 WBC 28.80 H Hgb 14.3 Hct 41.5 Plt Count 237 PT 12.9 INR 1.14 APTT 28.9 Sodium 136 Potassium 4.0 BUN 17 Creatinine 1.34 H Glucose 107 H Total Bilirubin 1.3 H AST 12 L ALT 20 Alkaline Phosphatase 52 Assessment and Plan - Plan Lactic acidosis Sepsis Leukocytosis Pneumonia IV hydration Started on IV antibiotic Monitor closely cultures Chest x-ray findings noted Patchy right mid to basal central predominant airspace opacities, concerning for pneumonia Acute hypoxic respiratory failure Also hyponatremia Failure to wean down oxygen requirement Monitor closely under telemetry COPD Continue bronchodilators Will hold back on steroids because of the leukocytosis and persistent pneumonia Anxiety and depression Continue home medications and needed History of aortic stenosis Had a recent echocardiogram GI/DVT prophylaxis Advance directive Full [place] Discharge Plan: Home Plan to discharge in: 48 Hours - Advance Directives Does patient have a Living Will: No Does patient have a Durable POA for Healthcare: No - Code Status/Comfort Care Code Status: Full Code Time Spent Managing Pts Care (In Minutes): 52
[2024-10-16] MEDS ORDERED: CEFEPIME 2 GM VIAL ONE (21:13)
[2024-10-16] MEDS ORDERED: VANCOMYCIN 1 GM/VIAL ONE (21:13)
[2024-10-16] MEDS ORDERED: NA CHLORIDE 0.9% 250 ML ONE (21:13)
[2024-10-16] MEDS ORDERED: NA CHLORIDE 0.9% 100 ML ONE (21:14)
[2024-10-16] MEDS ORDERED: NA CHLORIDE 0.9% 1,000 ML ONE (21:14)
[2024-10-17] MEDS: NA CHLORIDE 0.9% 1,000 ML IV SCH (00:17)
[2024-10-17] MEDS: QUETIAPINE 100MG TAB PO ONE (00:50)
[2024-10-17] MEDS: TRAZODONE 50 MG TABLET PO ONE (00:50)
[2024-10-17 01:35] VITALS: BMI 28.1
[2024-10-17 04:53] LABS: Absolute Eosinophils 0.1 K/uL (0-0.5); Absolute Lymphocytes (CBC) 0.4 K/uL (0.7-4.9); Absolute Monocytes 0.8 K/uL (0.1-1.3); Basophils % 0.2 % (0-1.3); Eosinophils % 0.5 % (0-4.4); Hematocrit 35.8 % (39.6-49.0); Hemoglobin 12.4 g/dL (13.6-17.9); MCH 35.2 pg (27.0-35.0); MCHC 34.8 g/dL (32.0-36.0); MCV 101.2 fL (80-100); MPV 6.9 fL (7.6-11.3); Monocytes % 3.9 % (3.3-12.3); Platelets 217 thou/uL (152-406); RBC Red Blood Cell Count 3.54 M/uL (4.33-5.43); Red Cell Distribution Width 13.3 % (12.1-15.2)
[2024-10-17 04:54] LABS: Neutrophils % 93.4 % (41.7-73.7)
[2024-10-17 05:12] LABS: ALT/SGPT 15 U/L (16-61); Albumin 2.3 g/dL (3.4-5.0); Albumin/Globulin Ratio 0.7 (1.1-1.8); Alkaline Phosphatase 42 U/L (45-117); Anion Gap 8.8 mEq/L (5.0-15.0); BUN Blood Urea Nitrogen 12 mg/dL (7-18); Bicarbonate 24 mEq/L (21-32); Bilirubin Total 1.4 mg/dL (0.2-1.0); Globulin 3.2 g/dL (2.3-3.5); Glomerular Filtration Rate 87 ml/min (=/>90); Glucose Level 93 mg/dL (74-106); Potassium 3.8 mEq/L (3.5-5.1); Protein, Total 5.5 g/dL (6.4-8.2); Sodium Level 138 mEq/L (136-145)
[2024-10-17 05:18] LABS: AST/SGOT < 10 U/L (15-37)
--- NOTE | 2024-10-17 07:02 | P.PN ---
Date of Service: 10/17/24 Subjective: Completed antibiotics/steroids after discharge but continued with cough, SOB at home 102 fever yesterday morning per patient. Reports chills day before fever. tachycardic, HR 100-110s +sore throat no fever since arrival ROS: 10 point ROS as noted above, otherwise negative Physical Exam: GEN: Alert, oriented, NAD CV: Sinus Tachycardia, no edema Pulm: mildly labored respirations on room air, diminished, expiratory wheezes, +crackles at bases bilaterally ABD: soft, nontender, nondistended Neuro: Normal speech, normal affect Problem List: Acute hypoxic respiratory failure secondary to pneumonia Sepsis secondary to pneumonia Lactic acidosis, resolved Chronic COPD 8mm RLL nodule; incidental finding Moderate Aortic Stenosis Anxiety/Depression Fatty liver Acute hypoxic respiratory failure secondary to pneumonia Sepsis secondary to pneumonia Lactic acidosis, resolved Chronic COPD on admission, presents with worsening SOB, cough for ~2 weeks. +102 fever at home. Denies hemoptysis/nausea/diarrhea. Recently hospitalized for Pneumonia. Reports multiple episodes of pneumonia in the past with similar symptoms. Discharged with 1 week of oral levaquin and prednisone on 10/05. Finished medications but continued with dyspnea/fever at home. EDILSON/Immunology from last hospitalization was negative. CXR (10/16): Patchy right mid-basal central predominant airspace opacities. Given Cefepime / vanc in ED. Zhang Garcia Follow blood cultures 10/17 CT chest ordered to further eval. pulm edema vs pneumonia - has mod AoS recently diagnosed fever at home, more likely infectious etiology, however cxr looks similar to presentation recently, which resolved ~overnight with lasix last time. Start IV Rocephin/Azithromycin (10/17-) Pulmonology consult. CRP worse compared to last hospitalization. Pro-lizbeth elevated COVID/Flu negative GAGAN, resolved Creatinine 1.34 on admission Resolved with IVF Continue to monitor renal function Monitor and replete electrolytes as needed 8mm RLL nodule; incidental finding CT chest last hospitalization incidentally noted a Subcentimeter peripheral right lower lobe 8 mm nodule. Moderate Aortic Stenosis Recent Echo (10/04/24): 60-65% EF with normal wall motion, calcified aortic valve with moderate aortic stenosis Missed follow up appointment Anxiety/Depression confirm home meds, restart as appropriate VTE: Lovenox Code: Full Dispo: Home, ~3 days Time Spent Managing Pts Care (In Minutes): 55
[2024-10-17] MEDS: ENOXAPARIN 40 MG/0.4 ML SQ SCH (09:34)
[2024-10-17] MEDS: CEFTRIAXONE 1,000 MG in NA CHLORIDE 0.9% 50 ML IVPB SCH (09:34)
[2024-10-17] MEDS: DESVENLAFAXINE SUCCINATE 50 MG ER TAB PO SCH (09:35)
[2024-10-17] MEDS: LOSARTAN POTASSIUM 50 MG TABLET PO SCH (09:35)
[2024-10-17] MEDS: BUSPIRONE HCL 5 MG TABLET PO SCH (09:35)
[2024-10-17] MEDS: AZITHROMYCIN IV 500 MG in NA CHLORIDE 0.9% 250 ML IVPB SCH (09:44)
[2024-10-17 09:55] LABS: Influenza A Ag Negative; Influenza B Ag Negative; SARS-CoV-2 Antigen Rapid Res Negative (Negative)
[2024-10-17] MEDS: FLU (Fluarix Triv) TS24-25(6MOS UP)/PF 45 MCG/0.5 ML Syringe IM ONE (12:28)
[2024-10-17] MEDS: DULERA 200/5 (MOMETASONE/FORMOTEROL) INHALER IH SCH (12:45)
--- NOTE | 2024-10-17 12:50 | P.CNS ---
Date of Consult: 10/24/24 Reason for Consult: Pneumonia Chief Complaint: SOB/ Cough History of Present Illness: Patient is 73 years of age was recently discharged from the hospital with a diagnosis of pneumonia sick for about 3 weeks came into the hospital shortness of breath cough right-sided chest pain has a history of COPD uses Gloriaxela quit smoking 35 years ago denies any sputum or hemoptysis Allergies No Known Allergies Allergy (Unverified 10/03/24 10:06) Home Medications: Buspirone HCl [Buspar*] 10 mg PO DAILY 10/03/24 Desvenlafaxine [Desvenlafaxine ER] 100 mg PO DAILY 10/03/24 Losartan Potassium [Cozaar] 25 mg PO DAILY 10/03/24 Quetiapine [Seroquel*] 200 mg PO BEDTIME 10/03/24 Trazodone HCl 100 mg PO BEDTIME 10/03/24 Benzonatate [Tessalon Perle] 100 mg PO TID PRN #15 cap 10/05/24 levoFLOXacin [Levaquin] 750 mg PO DAILY 7 Days #7 tab 10/05/24 predniSONE [Deltasone] 20 mg PO BID 7 Days #14 tab 10/05/24 - Past Medical/Surgical History Diabetic: No -: COPD -: Depression with anxiety -: Bilateral hip surgery -: bilateral knee replacement - Social History Smoking Status: Former smoker Alcohol use: No CD- Drugs: No Caffeine use: Yes Place of Residence: Home Review of Systems 10-point ROS is otherwise unremarkable General: Weakness Respiratory: Cough, Shortness of Breath Cardiovascular: Chest Pain Physical Examination Temp Pulse Resp BP Pulse Ox 98.4 F 120 H 18 125/59 L 91 10/17/24 12:00 10/17/24 12:00 10/17/24 12:00 10/17/24 12:00 10/17/24 12:00 General: Alert, In no apparent distress, Mild distress Respiratory: Crackles/rales (Because on the right side) Cardiovascular: No edema, Normal pulses, Regular rate/rhythm Laboratory Data (last 24 hrs) 10/16/24 10/16/24 10/16/24 17:46 17:46 17:46 WBC 28.80 H Hgb 14.3 Hct 41.5 Plt Count 237 PT 12.9 INR 1.14 APTT 28.9 Sodium 136 Potassium 4.0 BUN 17 Creatinine 1.34 H Glucose 107 H Total Bilirubin 1.3 H AST 12 L ALT 20 Alkaline Phosphatase 52 - Problems (1) Pneumonia Current Visit: No Status: Acute Plan: Patient is 73 years of age has been sick for about 3 weeks admitted with pneumonia bilateral pneumonia right greater than the left complaining of fever congestion shortness of breath right-sided chest pain his white count is significantly elevated was recently discharged home on levofloxacin and prednisone became worse his Wixela patient's labs chemistries all reviewed start patient on cefepime levofloxacin and steroids bilateral infiltrates chest x-ray reviewed during CT scan was a progression last echocardiogram in September 2024 shows normal left ventricular ejection fraction slight aortic stenosis Qualifiers: Pneumonia type: due to unspecified organism Laterality: bilateral Lung location: unspecified part of lung Qualified Code(s): J18.9 - Pneumonia, unspecified organism
--- NOTE | 2024-10-17 13:08 | RAD REPORT ---
EXAMINATION: CT Thorax Wo Con CLINICAL INDICATION: Male, 73 years old. [facility] MAIN b/l opacities, edema vs pna Y TECHNIQUE: Axial CT scan of the chest without intravenous contrast. Multiplanar reformats were genera belen and reviewed. One or more of the following dose reduction techniques were used: Automated exposure control, adjustment of the mA and/or kV according patient size, and/or iterative reconstruct ion. Unless otherwise specified, incidental findings do not require dedicated imaging follow-up. COMPARISON: 10/03/2024 FINDINGS: LOWER NECK: Visualized thyroid gland and soft tissues are normal. LUNGS: Progressive groundglass and consolidative opacities in the dependent lungs, with limited invol vement of the upper lobes. Interstitial thickening also noted, to a similar extent. Mild to moderate apical predominant centrilobular emphysematous changes again seen. PLEURA: No pleural effusion. No pneumothorax. . MEDIASTINUM AND LYMPH NODES: No mediastinal mass or fluid collection. Normal size mediastinal, hilar, and axillary lymph nodes. OSSEOUS STRUCTURES AND CHEST WALL: Intact. UPPER ABDOMEN: No significant abnormalities. IMPRESSION: Progressive dependent consolidative and groundglass opacities and interstitial thickening as above. T he dependent nature may reflect pulmonary edema rather than pneumonia.
[2024-10-17] MEDS: levoFLOXacin 750 MG TAB PO SCH (14:00)
[2024-10-17] MEDS: CEFEPIME 1 GM in NA CHLORIDE 0.9% 100 ML IV SCH (14:10)
[2024-10-17] MEDS: METHYLPREDNISOLONE 125 MG INJ IV SCH (14:10)
[2024-10-17] MEDS ORDERED: HOME MED 1 EA UNK (Trazodone Hcl [Trazodone Hcl] 100 MG Tablet) PO SCH (21:00)
[2024-10-17] MEDS: QUETIAPINE 100MG TAB PO SCH (21:39)
[2024-10-18 04:28] LABS: Hematocrit 35.2 % (39.6-49.0); Hemoglobin 12.6 g/dL (13.6-17.9); MCH 35.2 pg (27.0-35.0); MCHC 35.8 g/dL (32.0-36.0); MCV 98.3 fL (80-100); MPV 6.9 fL (7.6-11.3); Platelets 194 thou/uL (152-406); RBC Red Blood Cell Count 3.59 M/uL (4.33-5.43); Red Cell Distribution Width 13.4 % (12.1-15.2)
[2024-10-18 04:57] LABS: ALT/SGPT 15 U/L (16-61); Albumin 2.3 g/dL (3.4-5.0); Albumin/Globulin Ratio 0.6 (1.1-1.8); Alkaline Phosphatase 53 U/L (45-117); Anion Gap 8.9 mEq/L (5.0-15.0); BUN Blood Urea Nitrogen 13 mg/dL (7-18); Bicarbonate 22 mEq/L (21-32); Bilirubin Total 0.7 mg/dL (0.2-1.0); Globulin 4.1 g/dL (2.3-3.5); Glomerular Filtration Rate 93 ml/min (=/>90); Glucose Level 146 mg/dL (74-106); Magnesium 2.2 mg/dL (1.6-2.4); NT PRO-BNP 622 pg/mL (<125); Potassium 3.9 mEq/L (3.5-5.1); Protein, Total 6.4 g/dL (6.4-8.2); Sodium Level 139 mEq/L (136-145)
[2024-10-18 05:01] LABS: AST/SGOT < 10 U/L (15-37)
--- NOTE | 2024-10-18 07:44 | RAD REPORT ---
EXAMINATION: ONE VIEW CHEST XR CLINICAL INDICATION: Pneumonia TECHNIQUE: Frontal chest projection is submitted. Examination is limited by patient positioning and t echnique. COMPARISON: 10/16/2024 FINDINGS: Bilateral pulmonary opacities are noted, mildly improved since comparison study. The heart is upper l imit of normal in size. No displaced fractures identified. IMPRESSION: Mild improvement in lung aeration since comparison study.
[2024-10-18] MEDS: FUROSEMIDE 20 MG/ 2ML VIAL IV SCH (09:34)
[2024-10-18] MEDS: POTASSIUM CL SA 10 MEQ TAB PO ONE (09:34)
[2024-10-18] MEDS: BENZONATATE 100 MG CAP PO PRN (09:50)
--- NOTE | 2024-10-18 09:50 | P.PN ---
Date of Service: 10/18/24 Subjective: starting to feel some improvement feels slightly easier to take a deep breath no events overnight afebrile ROS: 10 point ROS as noted above, otherwise negative Physical Exam: GEN: Alert, oriented, NAD CV: Sinus Tachycardia, no edema Pulm: mildly labored respirations on room air, diminished, expiratory wheezes, +crackles at bases bilaterally ABD: soft, nontender, nondistended Neuro: Normal speech, normal affect Problem List: Acute hypoxic respiratory failure secondary to pneumonia vs pulmonary edema Sepsis secondary to pneumonia Lactic acidosis, resolved Chronic COPD 8mm RLL nodule; incidental finding Moderate Aortic Stenosis Anxiety/Depression Fatty liver Acute hypoxic respiratory failure secondary to pneumonia vs pulmonary edema Sepsis secondary to pneumonia Lactic acidosis, resolved Chronic COPD on admission, presents with worsening SOB, cough for ~2 weeks. +102 fever at home. Denies hemoptysis/nausea/diarrhea. Recently hospitalized for Pneumonia. Reports multiple episodes of pneumonia in the past with similar symptoms. Discharged with 1 week of oral levaquin and prednisone on 10/05. Finished medications but continued with dyspnea/fever at home. EDILSON/Immunology from last hospitalization was negative. CXR (10/16): Patchy right mid-basal central predominant airspace opacities. Follow blood cultures. COVID/Flu negative. 10/17 - CT chest with pulm edema vs pneumonia - has mod AoS recently diagnosed fever at home, more likely infectious etiology, however CXR looks similar to presentation recently, which resolved ~overnight with lasix last time. Started on empiric IV antiobitcs (10/17-) Pulmonology consult. CRP worse compared to last hospitalization. Pro-lizbeth elevated. IV steroids, dulera inhaler added per pulm 10/18 - CXR today with mild improvement continue IV Cefepime / oral levaquin (10/17-) IV lasix 20 mg daily x1 Breathing improving. Feels easier to take a deeper breath. Leukocytosis improving. CRP worse 175 -> 216 GAGAN, resolved Creatinine 1.34 on admission Resolved with IVF Continue to monitor renal function Monitor and replete electrolytes as needed 8mm RLL nodule; incidental finding CT chest last hospitalization incidentally noted a Subcentimeter peripheral right lower lobe 8 mm nodule. Moderate Aortic Stenosis Recent Echo (10/04/24): 60-65% EF with normal wall motion, calcified aortic valve with moderate aortic stenosis Missed follow up appointment earlier this week no obvious signs of overload 10/18 Cardiology consulted Anxiety/Depression confirm home meds, restart as appropriate VTE: Lovenox Code: Full Dispo: Home, ~2 days Time Spent Managing Pts Care (In Minutes): 55
--- NOTE | 2024-10-18 12:46 | P.PN ---
Subjective Date of Service: 10/18/24 Chief Complaint: Pneumonia Subjective: Improving (Patient is improving chest discomfort is slightly better) Review of Systems General: Weakness Respiratory: Cough, Shortness of Breath Cardiovascular: Chest Pain Physical Examination - Vital Signs Temperature: 97.5 F Blood Pressure: 119/59 Pulse: 94 Respirations: 16 Pulse Ox (%): 91 - Physical Exam General: Alert, Oriented x3 Respiratory: Expiratory wheezes Cardiovascular: No edema, Regular rate/rhythm, Normal S1 S2 Assessment And Plan - Current Problems (Diagnosis) (1) Pneumonia Current Visit: No Status: Acute Plan: Patient is 73 years of age admitted with progressive pneumonia failed outpatient therapy is improving still wheezing patient has underlying COPD continue with steroids and Levaquin chest x-ray seems to be little better possible discharge a.m. follow-up with me in 2 weeks discharge home tomorrow on prednisone 20 twice daily for a week in addition to levofloxacin 750 for a week Qualifiers: Pneumonia type: due to unspecified organism Laterality: bilateral Lung location: unspecified part of lung Qualified Code(s): J18.9 - Pneumonia, unspecified organism
--- NOTE | 2024-10-18 14:03 | P.CNS ---
Date of Consult: 10/18/24 Chief Complaint: Pneumonia History of Present Illness: Patient with PMH of HTN, COPD presented with worsening SHAH and cough, denies chest pain, no palpitations, no syncope, no lower extremities swelling. Allergies No Known Allergies Allergy (Unverified 10/03/24 10:06) Home medications list reviewed: Yes Home Medications: Buspirone HCl [Buspar*] 10 mg PO DAILY 10/03/24 Desvenlafaxine [Desvenlafaxine ER] 100 mg PO DAILY 10/03/24 Losartan Potassium [Cozaar] 25 mg PO DAILY 10/03/24 Quetiapine [Seroquel*] 200 mg PO BEDTIME 10/03/24 Trazodone HCl 100 mg PO BEDTIME 10/03/24 Benzonatate [Tessalon Perle] 100 mg PO TID PRN #15 cap 10/05/24 levoFLOXacin [Levaquin] 750 mg PO DAILY 7 Days #7 tab 10/05/24 predniSONE [Deltasone] 20 mg PO BID 7 Days #14 tab 10/05/24 - Past Medical/Surgical History Diabetic: No -: COPD -: Depression with anxiety -: Bilateral hip surgery -: bilateral knee replacement - Social History Smoking Status: Former smoker Alcohol use: No CD- Drugs: No Caffeine use: Yes Place of Residence: Home Review of Systems 10-point ROS is otherwise unremarkable Physical Examination Temp Pulse Resp BP Pulse Ox 97.5 F 94 H 16 119/59 L 91 10/18/24 12:47 10/18/24 12:47 10/18/24 12:47 10/18/24 12:47 10/18/24 12:47 General: Alert, In no apparent distress HEENT: Atraumatic, PERRLA, Mucous membr. moist/pink, EOMI, Sclerae nonicteric Neck: Supple, 2+ carotid pulse no bruit, No LAD, Without JVD or thyroid abnormality Respiratory: Clear to auscultation bilaterally, Normal air movement Cardiovascular: Regular rate/rhythm, Normal S1 S2 Gastrointestinal: Normal bowel sounds, No tenderness Musculoskeletal: No tenderness Integumentary: No rashes Neurological: Normal gait, Normal speech, Normal tone, Normal affect Lymphatics: No axilla or inguinal lymphadenopathy - Problems (1) SOB (shortness of breath) Current Visit: Yes Status: Acute Plan: Patient had a recent echo that shown normal LV systolic function, no signs of volume overload, his symptoms most likely secondary to PNA and COPD continue Losartan 25 mg daily (2) Aortic valve stenosis Current Visit: Yes Status: Acute Plan: Moderate in nature, follow up with cardiology was outpatient.
--- NOTE | 2024-10-18 14:45 | EKG ---
Test Date: 2024-10-16 Test Time: 18:00:43 Saturation Diver: MEASUREMENT RESULTS: Intervals: Rate: 100 UT: 128 QRSD: 114 QT: 378 QTc: 487 [place]: P: 68 UT: 128 QRS: -65 T: 41 INTERPRETIVE STATEMENTS: Normal sinus rhythm Incomplete right bundle branch block Left anterior fascicular block Moderate voltage criteria for LVH, may be normal variant Prolonged QT Abnormal ECG Compared to ECG 10/04/2024 13:34:54 Incomplete right bundle-branch block now present Prolonged QT interval now present Sinus tachycardia no longer present Atrial premature complex(es) no longer present Aberrant conduction of supraventricular beat(s) no longer present Early repolarization no longer present Electronically Signed On 10-18-24 14:41:31 CDT by Mehrdad Mercado
[2024-10-18 22:28] VITALS: O2SAT 93
[2024-10-19 05:15] LABS: C-Reactive Protein 92.8 mg/L (<3.00); Magnesium 2.3 mg/dL (1.6-2.4)
--- NOTE | 2024-10-19 07:53 | RAD REPORT ---
EXAMINATION: ONE VIEW CHEST XR CLINICAL INDICATION: f/u opacities TECHNIQUE: Frontal chest projection is submitted. Examination is limited by patient positioning and t echnique. COMPARISON: 10/18/2024 FINDINGS: Bilateral interstitial lung opacities appear essentially stable since comparison study. The heart is upper limit of normal in size. No displaced fractures identified. IMPRESSION: Stable chest since 10/18/2024 study.
[2024-10-19 08:57] VITALS: BP 122/59; TEMP 97.8
--- NOTE | 2024-10-19 09:27 | P.DS ---
Admission Date: 10/16/24 Discharge Date: 10/19/24 Disposition: ROUTINE DISCHARGE Discharge Condition: GOOD Reason for Admission: Pneumonia Consultations: Cardiology - Dr. Mercado Pulmonology - Dr. Frey Brief History of Present Illness: 73yo M, PMH: COPD not on any home oxygen use, anxiety, and depression, Patient came to ER with shortness of breath which has been progressively worsening over the last 2 weeks. Patient was recently been admitted to the hospital for pneumonia and was treated with antibiotics. Complains of subjective fever. No chest pain or shortness of breath. No nausea vomiting or diarrhea. No sick contacts.Denies any hemoptysis this time. Cough is productive with mucoid expectoration. Patient was assessed in the ER and is admitted for further management of pneumonia Hospital Course: Problem List: Acute hypoxic respiratory failure secondary to pneumonia Sepsis secondary to pneumonia Lactic acidosis, resolved Chronic COPD 8mm RLL nodule; incidental finding Moderate Aortic Stenosis Anxiety/Depression Fatty liver Physician discharge instructions: Patient presented with worsening SOB, cough, fever secondary to pneumonia. He was recently hospitalized ~2 weeks ago for pneumonia/COPD. He was discharged with 1 week of oral levaquin and prednisone on 10/05, but continued with dyspnea/fever at home after completing medications so he came back. Chest xray on admission noted patchy right mid to basal opacities concerning for pneumonia. CT chest with findings concerning for pulm edema vs pneumonia, slightly worse compared to 2 weeks ago. CRP on admission 175, WBC 28.8, lactic acid 2.7. COVID/Flu screening were negative. Blood cultures were without growth since 10/16. EDILSON/Immunology from last ho spitalization was negative. Patient was started on IV antibiotics/steroids and had improvement of his symptoms. IV cefepime and IV levaquin were deescalated to oral levaquin and patient continued to improve daily. Repeat chest xray 10/18 demonstrated improvement. CRP 92 on day of discharge, significantly improved compared to yesterday (216). Suspect more infectious etiology given fever at home, however chest xray looks similar to presentation last hospitalization, which improved with Lasix at the time. He did receive 1 dose of lasix 20 mg on 10/18. Chest xray stable on day of discharge. Patient was feeling better, breathing more comfortably on room air, and was deemed stable for discharge. Dr. Frey, pulm was consulted and recommended patient complete 1 week course of oral levaquin and prednisone on discharge. Will also send 1 week course of oral augmentin for extended coverage. Follow up with Dr. Frey, food and beverage server in 1-2 weeks for further management. Repeat blood work in ~1 week to monitor CBC. WBC on 10/18: 11.3 Medications: Levaquin 750 mg daily x1 week Augmentin 875 mg twice daily x1 week Prednisone 20 mg twice daily for 1 week Follow up: PCP 3-5 days isiah Fang in 1-2 weeks Please call to schedule / confirm appointments Physical Exam: GEN: Alert, oriented, NAD CV: Regular rate and rhythm, no edema Pulm: non labored respirations on room air, clear bilaterally ABD: soft, nontender, nondistended Neuro: Normal speech, normal affect Vital Signs/Physical Exam: Temp Pulse Resp BP Pulse Ox 97.8 F 92 H 12 122/59 L 93 10/19/24 08:00 10/19/24 08:00 10/19/24 08:00 10/19/24 08:00 10/19/24 08:00 Laboratory Data at Discharge: WBC 11.30 thou/uL (4.3-10.9) H 10/18/24 04:01 Hgb 12.6 g/dL (13.6-17.9) L 10/18/24 04:01 Hct 35.2 % (39.6-49.0) L 10/18/24 04:01 Plt Count 194 thou/uL (152-406) 10/18/24 04:01 PT 12.9 SECONDS (10-13.0) 10/16/24 17:46 INR 1.14 10/16/24 17:46 APTT 28.9 SECONDS (27.2-37.4) 10/16/24 17:46 Sodium 139 mEq/L (136-145) 10/19/24 04:08 Potassium 4.0 mEq/L (3.5-5.1) 10/19/24 04:08 BUN 25 mg/dL (7-18) H 10/19/24 04:08 Creatinine 0.88 mg/dL (0.70-1.30) 10/19/24 04:08 Glucose 140 mg/dL (74-106) H 10/19/24 04:08 Magnesium 2.3 mg/dL (1.6-2.4) 10/19/24 04:08 Total Bilirubin 0.7 mg/dL (0.2-1.0) 10/18/24 04:01 AST < 10 U/L (15-37) L 10/18/24 04:01 ALT 15 U/L (16-61) L 10/18/24 04:01 Alkaline Phosphatase 53 U/L (45-117) D 10/18/24 04:01 Home Medications: Buspirone HCl [Buspar*] 10 mg PO DAILY 10/03/24 Desvenlafaxine [Desvenlafaxine ER] 100 mg PO DAILY 10/03/24 Losartan Potassium [Cozaar] 25 mg PO DAILY 10/03/24 Quetiapine [Seroquel*] 200 mg PO BEDTIME 10/03/24 Trazodone HCl 100 mg PO BEDTIME 10/03/24 Benzonatate [Tessalon Perle*] 100 mg PO TID PRN #15 cap 10/05/24 Amox/Clavulanate [Augmentin 875-125 Tab] 1 tab PO BID 7 Days #14 tab 10/19/24 Mometasone/Formoterol [Dulera 200 Mcg/5 Mcg Inhaler] 2 puff IH BID inhaler 10/19/24 levoFLOXacin [Levaquin*] 750 mg PO DAILY 7 Days #7 tab 10/19/24 predniSONE [Prednisone*] 20 mg PO BID 7 Days #14 tab 10/19/24 New Medications: Amox/Clavulanate [Augmentin 875-125 Tab] 1 tab PO BID 7 Days #14 tab levoFLOXacin [Levaquin*] 750 mg PO DAILY 7 Days #7 tab predniSONE [Prednisone*] 20 mg PO BID 7 Days #14 tab Physician Discharge Instructions: Physician discharge instructions: Patient presented with worsening SOB, cough, fever secondary to pneumonia. He was recently hospitalized ~2 weeks ago for pneumonia/COPD. He was discharged with 1 week of oral levaquin and prednisone on 10/05, but continued with dyspnea/fever at home after completing medications so he came back. Chest xray on admission noted patchy right mid to basal opacities concerning for pneumonia. CT chest with findings concerning for pulm edema vs pneumonia, slightly worse compared to 2 weeks ago. CRP on admission 175, WBC 28.8, lactic acid 2.7. COVID/Flu screening were negative. Blood cultures were without growth since 10/16. EDILSON/Immunology from last hospitalization was negative. Patient was started on IV antibiotics/steroids and had improvement of his symptoms. IV cefepime and IV levaquin were deescalated to oral levaquin and patient continued to improve daily. Repeat chest xray 10/18 demonstrated improvement. CRP 92 on day of discharge, significantly improved compared to yesterday (216). Suspect more infectious etiology given fever at home, however chest xray looks similar to presentation last hospitalization, which improved with Lasix at the time. He did receive 1 dose of lasix 20 mg on 10/18. Chest xray stable on day of discharge. Patient was feeling better, breathing more comfortably on room air, and was deemed stable for discharge. isiah Fang was consulted and recommended patient complete 1 week course of oral levaquin and prednisone on discharge. Will also send 1 week course of oral augmentin for extended coverage. Follow up with Dr. Frey food and beverage server in 1-2 weeks for further management. Repeat blood work in ~1 week to monitor CBC. WBC on 10/18: 11.3 Medications: Levaquin 750 mg daily x1 week Augmentin 875 mg twice daily x1 week Prednisone 20 mg twice daily for 1 week Follow up: PCP 3-5 days isiah Fang in 1-2 weeks Please call to schedule / confirm appointments Followup: Dar Santacruz DO [Primary Care Provider] - Time spent managing pt's care (in minutes): 45
== END 2024-10-19 11:14 | disposition home or self-care (01) | DRG 871 ==
LOC: ER 16:26 → ERHOLD 20:28 → 2ND 21:29
PROVIDERS: ADMIT Family Medicine; ATTEND Hospitalist
DX: A41.9 Sepsis, unspecified organism (principal); J18.9 Pneumonia, unspecified organism; J96.01 Acute respiratory failure with hypoxia; J44.0 Chronic obstructive pulmonary disease with (acute) lower respiratory infection; E87.20 Acidosis, unspecified; E87.1 Hypo-osmolality and hyponatremia; N17.9 Acute kidney failure, unspecified; I35.0 Nonrheumatic aortic (valve) stenosis; F32.A Depression, unspecified; F41.9 Anxiety disorder, unspecified; K76.0 Fatty (change of) liver, not elsewhere classified; R91.8 Other nonspecific abnormal finding of lung field; Z23 Encounter for immunization; Z11.52 Encounter for screening for COVID-19; Z79.52 Long term (current) use of systemic steroids; Z79.899 Other long term (current) drug therapy; Z87.891 Personal history of nicotine dependence; Z96.653 Presence of artificial knee joint, bilateral; Y95 Nosocomial condition
CPT/HCPCS: 36415; 71045; 71250; 80048; 80053; 82947; 83605; 83735; 83880; 84145; 84484; 85025; 85027; 85610; 85730; 86140; 87040; 87428; 90656; 93005; 94760; 96365; 96367; 99285; J0692; J0696; J1650; J1940; J2405; J2919; J3370; J3535; J7030; J7050; J7613; J7644